=== PATIENT | female | born 1945 | race Hispanic/Latino ===

== ENCOUNTER 2020-06-01 10:09 | Inpatient (IN) | payer MEDICARE, BC, OTHER ==
[2020-06-01 10:30] LABS: %Basophils 0.8 % (0.0-1.0); %Eosinophils 0.2 % (0.0-10.0); %Monocytes 3.5 % (0.0-10.0); %Neutrophils 91.5 % (42.0-75.0); Hemoglobin 13.8 g/dL (12.0-16.0); Mean Corpuscular HGB CONC 33.6 g/dL (32.0-36.0); Mean Corpuscular Volume 92.2 fL (78.0-98.0); Mean Platelet Volume 7.4 fL (7.4-10.4); Platelet Count 235 thou/uL (130-400); RBC Distribution Width 12.4 % (11.5-14.5); Red Blood Cell (RBC) Count 4.45 mill/uL (4.20-5.40); White Blood Cell (WBC) Count 10.8 thou/uL (4.8-10.8)
[2020-06-01 10:31] LABS: #Basophils 0.1 thou/uL (0.0-0.2); #Lymphocytes 0.4 thou/uL (1.20-3.40); #Monocytes 0.4 thou/uL (0.11-0.59); #Neutrophils 9.9 thou/uL (1.40-6.50)
[2020-06-01 10:35] LABS: PTT 27.9 sec (22.9-36.1); Prothrombin Time 13.6 sec (12.0-14.7)
--- NOTE | 2020-06-01 10:39 | CT ---
CT head noncontrast HISTORY: Altered mental status. CVA. FINDINGS: Centered within the anterior aspect of the left basal ganglia is a large heterogeneous lobu lar predominantly hyperdense fluid collection that is 3.7 cm x 2.9 cm greatest diameters on the axial images. It is surrounded by vasogenic edema and results in complete effacement of the frontal h orn of the left lateral ventricle and 0.3 cm rightward shift of the septum pellucidum. Hyperdense hemorrhage extends into the lateral, third, and fourth ventricles, with slight distention of the right temporal horn. Prominent soft tissue swelling over the right supratemporal calvarium may be related to recent injury . No underlying skull fracture. Mucous retention cyst within the left maxillary sinus. No air-fluid levels. IMPRESSION : Large acute intra-axial left basal ganglia hematoma (likely hypertensive) with intraventricular exten arian and early hydrocephalus. Findings were called to Dr. Fox in the emergency department at 1024 hours Code CR.
[2020-06-01 11:01] LABS: Anion Gap 17 mmol/L (10-20); BUN (Urea Nitrogen) 13 mg/dL (9.8-20.1); Calc. Creatinine Clearance 0 mL/min (70-130); Calcium 8.7 mg/dL (7.8-10.44); Carbon Dioxide 21 mmol/L (23-31); Chloride 101 mmol/L (98-107); Estimated GFR-MDRD Greater than 90; Glucose 137 mg/dL (83-110); Potassium 3.3 mmol/L (3.5-5.1); Sodium 136 mmol/L (136-145)
[2020-06-01 11:02] LABS: ALT (SGPT) 149 U/L (8-55); AST (SGOT) 75 U/L (5-34); Albumin 4.1 g/dL (3.4-4.8); Alkaline Phosphatase 102 U/L (40-110); Bilirubin, Total 0.6 mg/dL (0.2-1.2); CK (CPK) 321 U/L (29-168); Globulin 2.8 g/dL (2.4-3.5); Protein, Total 6.9 g/dL (5.8-8.1)
[2020-06-01 11:07] LABS: Bilirubin Negative (Negative); Blood, Urine Negative (Negative); Clarity Clear (Clear); Glucose, Urine (Dipstick) 50 mg/dL (Negative); Ketone, Urine 10 mg/dL (Negative); Leukocyte Negative Leu/uL (Negative); Nitrite Negative (Negative); Protein, Urine (Dipstick) 20 mg/dL (Neg-Trace); Specific Gravity, Urine 1.014 (1.002-1.036); Urobilinogen Normal mg/dL (Less than 2)
[2020-06-01] MEDS ORDERED: Morphine 4 MG/ML VIAL ONE (12:29)
--- NOTE | 2020-06-01 12:32 | MRI ---
MRI BRAIN WITH AND WITHOUT CONTRAST: DATE: 06/01/2020 HISTORY: 75-year-old female with left intracranial intraparenchymal hematoma. Rule out underlying mass. COMPARISON: No prior brain MRIs. Noncontrast CT earlier today available. TECHNIQUE: Multiplanar, multisequence MRI of the brain performed pre- and post-IV injection of gadolinium based contrast agent. FINDINGS: There is a large intra-axial hematoma measuring approximately 4.7 x 4.2 x 4.0 cm centered at the left basal ganglia, and in golfing the entire left caudate head. The hematoma is mostly deoxyhemoglobin. There is a halo of multiple mild surrounding vasogenic edema. The hematoma extends i nto the left lateral ventricle. The left frontal horn is completely effaced due to extrinsic compression by the basal ganglia component of the hematoma. Hematoma extension into the body of the l eft lateral ventricle. There is also hematoma filling and at least partially obstructing the third ventricle, foramen of Monro bilaterally, occupying a portion of the right frontal horn, and with comp onents in the trigones and occipital horns of the lateral ventricles, left greater than right, and in the fourth ventricle, foramen of Magendie, and bilateral foramina of Luschka, right greater than l eft, as well as aqueduct of Sylvius. There is mild dilation of the right lateral ventricle and body of left lateral ventricle. It is uncertain how much of this represents mild partial obstructive hydro cephalus and how much of this is ex vacuo dilation due to atrophy, without prior studies for comparison. On the postcontrast images, there are numerous small patchy regions of enhancement within the basal g anglia portion of the hematoma. This enhancement could either represent active bleeding, or neoplasm, although the appearance is not typical for neoplasm. The left-sided basal ganglia and intraventricular portion of the hematoma causes mild focal left to r ight midline shift of the septum pellucidum a short distance of approximately 0.4 cm. Otherwise, no significant midline shift elsewhere. The basal cisterns are not effaced. No restricted diffusion outs carissa of hematomas. No dural venous sinus thrombosis. No definite enlarged feeding arteries or enlarged draining veins, to indicate AVM. No aneurysm larger than 3 mm identified. There is edema in the superficial soft tissues of the right lateral scalp, lateral to the right tempo ralis muscle. IMPRESSION: 1) large intra-axial hematoma centered in the left corpus striatum, involving most of left basal gang michael and left caudate nucleus. 2) extensive intraventricular extension of hemorrhage. 3) there is probably at least a low-grade partial obstructive hydrocephalus. 4) heterogeneous multifocal enhancement of the left basal ganglia hematoma. This could either represe nt active hemorrhaging or neoplasm. 5) possibilities include hypertensive hemorrhage versus neoplastic hemorrhage. 6) acute, traumatic right lateral scalp contusion, presumably from fall.
[2020-06-01] MEDS ORDERED: Ondansetron PF 4 MG/2 ML Vial ONE (12:34)
[2020-06-01 15:35] VITALS: BMI 30.9
[2020-06-01] MEDS ORDERED: Acetaminophen 650 MG Suppository PR PRN (15:41)
[2020-06-01] MEDS ORDERED: Acetaminophen 325 MG TAB PO PRN (15:41)
[2020-06-01] MEDS ORDERED: HYDROcodone/Acetaminophen 5/325 mg Tablet PO PRN (15:45)
[2020-06-01] MEDS ORDERED: Acetaminophen/Codeine 30-300mg Tablet PO PRN (15:49)
[2020-06-01] MEDS: Sodium Chloride 0.9% 1,000 ML IV SCH (16:17)
[2020-06-01] MEDS: Ketorolac Tromethamine 30 MG/ML VIAL IVP PRN ×2 (16:40→21:56)
[2020-06-01] MEDS: hydrALAZINE 20 MG/ML VIAL SLOW IVP PRN ×2 (16:41→20:05)
--- NOTE | 2020-06-01 17:48 | PDOC.HHP ---
Hospitalist HPI - History of Present Illness Right-sided weakness, a aphasia History of Present Illness: This patient is a 75-year-old female with a history of hypertension who presented to the emergency department with strokelike symptoms. These were manifested as right-sided weakness and expressive aphasia. CT scan of the head revealed a large acute intra-axial left basal ganglia hematoma likely hypertensive with intraventricular extension and early hydrocephalus. ER admitted the patient to the neurosurgical team and apparently there is no plan for acute surgical intervention at this time. Patient remains significantly encephalopathic with a aphasia and is unable to give any additional history. Patient has not been admitted to this institution before and there are no old records to draw upon. Hospitalist ROS - Review of Systems ROS unobtainable: due to mental status - Medication Medications: Active Medications Generic Name Dose Route Start Last Admin Trade Name Freq PRN Reason Stop Dose Admin Hydralazine HCl 10 mg 06/01/20 15:44 06/01/20 16:41 Apresoline SLOW IVP 10 mg Q15MIN PRN Administration SBP greater than 150 mmHg Sodium Chloride 1,000 mls @ 50 mls/hr 06/01/20 15:45 06/01/20 16:17 Normal Saline 0.9% IV 1,000 mls .Q20H LUCIA Administration Ketorolac Tromethamine 15 mg 06/01/20 15:49 06/01/20 16:40 Toradol IVP 15 mg Q6H PRN Administration pain Hospitalist History - Past Medical History Source: RN notes reviewed Cardiac: reports: HTN - Past Surgical History Past Surgical History: reports: Hysterectomy - Exam General Appearance: NAD General - other findings: Encephalopathic. She will turn to the sound of my voice, but no tracking Eye: PERRL Neck: supple, symmetric, no JVD, no thyromegaly, no lymphadenopathy, no carotid bruit Heart: RRR, no murmur, no gallops, no rubs, normal peripheral pulses Heart - other findings: Some ectopy Respiratory: CTAB, no wheezes, no rales, no ronchi, normal chest expansion, no tachypnea, normal percussion Gastrointestinal: soft, non-tender, non-distended, normal bowel sounds, no palpable masses, no hepatomegaly, no splenomegaly, no bruit Extremities: no cyanosis, no clubbing, no edema Skin: normal turgor, no lesions, no rashes Neurological - other findings: RLE weakness, RUE paralysis. Right facial droop. A phasic. Psychiatric - other findings: Encephalopathic. Hospitalist Results - Labs Result Diagrams: 06/01/20 10:14 06/01/20 10:14 Lab results: WBC 10.8 thou/uL (4.8-10.8) 06/01/20 10:14 Hgb 13.8 g/dL (12.0-16.0) 06/01/20 10:14 Hct 41.0 % (36.0-47.0) 06/01/20 10:14 MCV 92.2 fL (78.0-98.0) 06/01/20 10:14 Plt Count 235 thou/uL (130-400) 06/01/20 10:14 Neutrophils % 91.5 % (42.0-75.0) H 06/01/20 10:14 Sodium 136 mmol/L (136-145) 06/01/20 10:14 Potassium 3.3 mmol/L (3.5-5.1) L 06/01/20 10:14 Chloride 101 mmol/L (98-107) 06/01/20 10:14 Carbon Dioxide 21 mmol/L (23-31) L 06/01/20 10:14 BUN 13 mg/dL (9.8-20.1) 06/01/20 10:14 Creatinine 0.63 mg/dL (0.6-1.1) 06/01/20 10:14 Glucose 137 mg/dL (83-110) H 06/01/20 10:14 Calcium 8.7 mg/dL (7.8-10.44) 06/01/20 10:14 Total Bilirubin 0.6 mg/dL (0.2-1.2) 06/01/20 10:14 AST 75 U/L (5-34) H 06/01/20 10:14 ALT 149 U/L (8-55) H 06/01/20 10:14 Alkaline Phosphatase 102 U/L (40-110) 06/01/20 10:14 Creatine Kinase 321 U/L (29-168) H 06/01/20 10:14 Troponin I 0.020 ng/mL (< 0.028) 06/01/20 10:14 Serum Total Protein 6.9 g/dL (5.8-8.1) 06/01/20 10:14 Albumin 4.1 g/dL (3.4-4.8) 06/01/20 10:14 Urine Ketones 10 mg/dL (Negative) A 06/01/20 10:50 Urine Blood Negative (Negative) 06/01/20 10:50 Urine Nitrite Negative (Negative) 06/01/20 10:50 Ur Leukocyte Esterase Negative Meli/uL (Negative) 06/01/20 10:50 - EKG Interpretation EKG: Sinus rhythm with no ischemic changes. - Radiology Interpretation MRI - head Status: image reviewed by me, report reviewed by me (IMPRESSION: 1) large intra- axial hematoma centered in the left corpus striatum, involving most of left basal ganglia and left caudate nucleus. 2) extensive intraventricular extension of hemorrhage. 3) there is probably at least a low-grade partial obstructive hydrocephalus. 4) heterogeneous multifocal enhancement of the left basal ganglia hematoma. This could either represent active hemorrhaging or neoplasm. 5 ) possibilities include hypertensive hemorrhage versus neoplastic hemorrhage. 6 ) acute, traumatic right lateral scalp contusion, presumably from fall.) Hospitalist H&P A/P - Problem (1) Intracerebral hemorrhage Code(s): I61.9 - NONTRAUMATIC INTRACEREBRAL HEMORRHAGE, UNSPECIFIED Status: Acute (2) Right hemiplegia Code(s): G81.91 - HEMIPLEGIA, UNSPECIFIED AFFECTING RIGHT DOMINANT SIDE Status : Acute (3) Aphasia Code(s): R47.01 - APHASIA Status: Acute (4) Acute metabolic encephalopathy Code(s): G93.41 - METABOLIC ENCEPHALOPATHY Status: Acute (5) Hypertension Code(s): I10 - ESSENTIAL (PRIMARY) HYPERTENSION Status: Acute (6) Transaminitis Code(s): R74.0 - NONSPEC ELEV OF LEVELS OF TRANSAMNS & LACTIC ACID DEHYDRGNSE Status: Acute - Plan Plan: Intercerebral hemorrhage: This patient unfortunately has a very large bleed with communication of the ventricle and possible early hydrocephalus. She has right fco-plegia with some movement of the right lower extremity. She has right facial droop and encephalopathy with inability to speak. She is admitted to the neurosurgical team. Hospital medicine consulted for medical management. Currently her blood pressures are low to low normal. She has PRN medications available to manage her blood pressure should they become problematic. She is admitted to the ICU. Need to see how she responds with time. Transaminitis: Unclear etiology. We will repeat her levels in the morning. At some point she may need an ultrasound of the liver if her numbers continue to be high. Hypertension: Patient appears to take metoprolol ER 100 mg daily. Will monitor for rebound tachycardia.
--- NOTE | 2020-06-01 22:24 | HP ---
CHIEF COMPLAINT: Altered mental status, expressive aphasia, right sided weakness HISTORY OF PRESENT ILLNESS: Ms. Hennessy is a 75-year-old female who presented to the emergency department this morning after her family discovered her on the floor with altered mental status, speech deficits, and inability to move the right side of her body. History was limited secondary to patient being Moldovan- speaking and altered. CT of the brain completed upon ED arrival demonstrates a large left intraparenchymal hemorrhage involving the left basal ganglia with intraventricular expansion. There is casting of blood within the third ventricle. PAST MEDICAL HISTORY: Hypertension. SURGICAL HISTORY: Hysterectomy MEDICATIONS: Antihypertensive (unspecified). Remainder of history limited secondary to altered mental status and patient being Moldovan-speaking. REVIEW OF SYSTEMS: Limited secondary to the altered mental status and Moldovan speaking patient. PHYSICAL EXAMINATION: The patient is drowsy but awakes to verbal stimulus. No apparent respiratory or painful distress. GCS 13 (M6 V3 E4). Aphasic. Pupils are 3 mm, equal, round, and reactive to light. Right facial droop. Right side hemiparesis. 4/5 strength throughout left upper and lower extremity myotomes. Heart: RRR. Respiratory: CTAB, no wheezing, no rales, no rhonchi IMPRESSION AND DIAGNOSES: 1. Large left intraparenchymal hemorrhage with intraventricular extension 2. Altered mental status 3. Right sided hemiparesis 4. History of hypertension. PLAN: Case was discussed and imaging reviewed with Dr. [place]. Index CT of the brain demonstrated findings reported above in HPI. Our team ordered an MRI of the brain with and without contrast which demonstrates the left intraparenchymal hematoma with acute and subacute components. No obvious underlying lesion identified, however one may be present and obscured by hematoma. Ventricular size remains stable in comparison with index CT. A CTA of the head will be completed tomorrow morning. The patient has been admitted to the Critical Care Unit for close monitoring with hourly neurologic checks. Systolic blood pressure should be maintained less than 150 mmHg, and p.r.n. hydralazine has been ordered to help maintain blood pressure within these parameters. Head of bed 30 degrees. The patient will remain n.p.o. at this time. Please call for any neurologic changes or other concerns. This was a 50-minute initial visit, in which greater than 50% of the time was spent in review of records, review of imaging, evaluation, examination, and formulation of a plan. The remaining time was spent in counseling and coordination of care. Job ID: [id number] MTDD
[2020-06-02] MEDS: hydrALAZINE 20 MG/ML VIAL SLOW IVP PRN ×2 (00:35→17:02)
[2020-06-02 04:03] LABS: Anion Gap 17 mmol/L (10-20); BUN (Urea Nitrogen) 14 mg/dL (9.8-20.1); Calc. Creatinine Clearance 100 mL/min (70-130); Calcium 8.8 mg/dL (7.8-10.44); Carbon Dioxide 20 mmol/L (23-31); Chloride 101 mmol/L (98-107); Estimated GFR-MDRD 83; Glucose 127 mg/dL (83-110); Potassium 3.6 mmol/L (3.5-5.1); Sodium 134 mmol/L (136-145)
[2020-06-02 04:05] LABS: #Lymphocytes 0.8 thou/uL (1.20-3.40); #Neutrophils 11.8 thou/uL (1.40-6.50); %Basophils 0.1 % (0.0-1.0); %Eosinophils 0.2 % (0.0-10.0); %Lymphocytes 5.9 % (21.0-51.0); %Monocytes 7.2 % (0.0-10.0); %Neutrophils 86.7 % (42.0-75.0); Hemoglobin 14.6 g/dL (12.0-16.0); Mean Corpuscular HGB CONC 33.5 g/dL (32.0-36.0); Mean Corpuscular Hemoglobin 30.3 pg (27.0-31.0); Mean Corpuscular Volume 90.3 fL (78.0-98.0); Mean Platelet Volume 8.2 fL (7.4-10.4); Platelet Count 246 thou/uL (130-400); RBC Distribution Width 12.9 % (11.5-14.5); Red Blood Cell (RBC) Count 4.81 mill/uL (4.20-5.40); White Blood Cell (WBC) Count 13.7 thou/uL (4.8-10.8)
[2020-06-02] MEDS: Ketorolac Tromethamine 30 MG/ML VIAL IVP PRN ×3 (08:54→23:50)
[2020-06-02] MEDS: Famotidine/PF 20 mg/2ml Vial SLOW IVP SCH ×2 (08:55→20:08)
--- NOTE | 2020-06-02 09:00 | CON ---
DATE OF CONSULTATION: 06/02/2020 CONSULTING PHYSICIAN: Neurosurgical Service. REASON FOR CONSULTATION: ICU management. HISTORY OF PRESENT ILLNESS: This is a 75-year-old female who was brought in yesterday after being found on the floor with altered mental status. She has a large intraventricular bleed. She is hemiparetic on the right and is aphasic. PAST MEDICAL HISTORY: Hypertension. PAST SURGICAL HISTORY: Hysterectomy. MEDICATIONS: Prior to admission, not known. ALLERGIES: NONE. SOCIAL HISTORY: Not known whether she smokes or drinks. REVIEW OF SYSTEMS: Cannot be obtained. She is aphasic. PHYSICAL EXAMINATION: VITAL SIGNS: Heart rate 88, O2 saturation 95% on room air, respirations 23, and blood pressure 129/85. GENERAL: She moves in bed. She tries to pick out IVs with her left side. HEENT: Pupils reactive. Sclerae anicteric. Oropharynx clear. NECK: No adenopathy or JVD. LUNGS: Clear. CARDIAC: S1, S2. Regular. ABDOMEN: Soft. EXTREMITIES: No edema. NEUROLOGIC: She cannot move right side. LABORATORY DATA: White blood cell count 13.7, hematocrit 43.4, and platelet count 246. Sodium 134, potassium 3.6, chloride 101, CO2 of 20, BUN 14, creatinine 0.7, and glucose 127. Urinalysis shows small amount of ketones. CT of the head was reviewed. ASSESSMENT: Large brain bleed with copious intraventricular blood with perhaps some component of obstructive hydrocephalus per MRI. PLAN: 1. Supportive care deferred to Neurosurgery on management of CT findings; at some point, we will probably need to address nutritional status with either Dobhoff tube or PEG tube. 2. Hypertensive management with IV medications until she is able to take oral medications. 3. Covered for GI prophylaxis with Pepcid. Covered for DVT prophylaxis with SCDs. Job ID: [id number]
--- NOTE | 2020-06-02 09:32 | CT ---
PRELIMINARY REPORT/[facility]/EMERGENCY AFTER HOURS PROCEDURE: Receipt of this report by the clinical staff was confirmed with Ananth Pacheco RN by Cesar Elder on Jun 02, 2020 06:13:00 CDT. Addendum electronically signed by Cesar Elder on June 02, 2020 6:13:15 AM CDT EXAMINATION CTA Head With Intravenous Contrast. CT Head with/without Contrast. HISTORY Left IPH, assess for vascular abnormalities TECHNIQUE Axial CTA images of the head with intravenous contrast. Three-dimensional MIP/volume rendered reforma tions were performed. Axial computed tomography images of the head/brain performed with/without intravenous contrast. CONTRAST With and without; ISOVUE 370,100mL COMPARISON None provided. FINDINGS: CT HEAD: BRAIN/VENTRICLES: Intraparenchymal hemorrhage is appreciated within the left frontal lobe, measuring 3.7 x 3.2 x 3.4 cm . Surrounding vasogenic edema is present. The intraparenchymal hemorrhage extends into the ventricu lar system to involve almost the entirety of the left lateral, third, and fourth ventricles. A small amount of hemorrhage is appreciated within the right lateral ventricle as well as within the cerebra l aqueduct. No definitive mass lesion. No CT evidence for acute territorial infarct. Minimal left to right midline shift is present. The lateral and third ventricles are prominent. ORBITS: The orbits are unremarkable. SINUSES AND MASTOIDS: A mucus retention cyst is seen within the left maxillary sinus. The mastoid air cells are clear. CTA HEAD: INTERNAL CAROTID ARTERIES The intracranial ICAs are patent with no significant stenosis. No occlusion. No aneurysm. ANTERIOR CEREBRAL ARTERIES No significant stenosis. No occlusion. No aneurysm. MIDDLE CEREBRAL ARTERIES The left mid to distal M1 segment is diminutive in appearance. Contrast is seen extending through th e left M2, M3, and M4 segments. The right MCA is unremarkable. No aneurysm. POSTERIOR CEREBRAL ARTERIES No significant stenosis. No occlusion. No aneurysm. BASILAR ARTERY No significant stenosis. No occlusion. No aneurysm. VERTEBRAL ARTERIES No significant stenosis. No occlusion. No aneurysm. OTHER: SOFT TISSUES: No acute finding. No masses or lymphadenopathy. BONES: No acute osseous abnormality. IMPRESSION: 1. Intraparenchymal hemorrhage centered within the left frontal lobe with intraventricular extension as described above. Minimal left to right midline shift is present. Additionally, there is promine nce of the lateral and third ventricles suggestive of early obstructive hydrocephalus. 2. Diminutive appearance of the left mid to distal M1 segment is likely secondary to vasospasm that is adjacent to the aforementioned intraparenchymal hemorrhage. Stenosis is another differential cons ideration. ELECTRONICALLY SIGNED BY: Wayne Irizarry MD Jun 02, 2020 6:04:58 AM CDT This report is intended for review by the ordering physician only, in accordance of law. If you recei ve this report in error, please call [facility] at [phone]. FINAL REPORT CTA HEAD WITH AND WITHOUT CONTRAST: Date: 06/02/2020 Axial tomograms obtained through the head without IV enhancement. This is followed by axial tomograms following angio protocol with multiplanar reconstruction and 3D postprocessing. INDICATION: Intraparenchymal hemorrhage. Assess for vascular abnormalities. FINDINGS/IMPRESSION: Intraparenchymal hematoma involving the left frontal lobe and basal ganglia with intraventricular ext ension and prominence of the ventricles noted as seen on the preliminary report. CTA shows luminal narrowing mid to distal left M1 segment, which is described on the preliminary repo rt. I am in agreement with the preliminary report issued by [facility]. POS: [place]
[2020-06-02] MEDS: Sodium Chloride 0.9% 1,000 ML IV SCH ×2 (10:21→11:42)
--- NOTE | 2020-06-02 13:01 | PDOC.HOSPP ---
- Subjective Encounter Date: 06/02/20 non-verbal - Objective Vital Signs & Weight: Vital Signs (12 hours) Temp Pulse Ox 06/02/20 11:00 99.1 F 06/02/20 07:45 96 06/02/20 07:00 99.0 F 06/02/20 03:55 98.2 F Weight Weight 191 lb 5.78 oz Most Recent Monitor Data Heart Rate from ECG 108 NIBP 161/88 NIBP BP-Mean 112 Respiration from ECG 33 SpO2 98 I&O: 06/01/20 06/02/20 06/03/20 06:59 06:59 06:59 Intake Total 686 Output Total 525 395 Balance 161 -395 Result Diagrams: 06/02/20 03:07 06/02/20 03:07 Hospitalist ROS - Medication Medications: Active Medications Generic Name Dose Route Start Last Admin Trade Name Freq PRN Reason Stop Dose Admin Famotidine 20 mg 06/02/20 09:00 06/02/20 08:55 Pepcid SLOW IVP 20 mg BID LUCIA Administration Hydralazine HCl 10 mg 06/01/20 15:44 06/02/20 00:35 Apresoline SLOW IVP 10 mg Q15MIN PRN Administration SBP greater than 150 mmHg Sodium Chloride 1,000 mls @ 50 mls/hr 06/01/20 15:45 06/02/20 11:42 Normal Saline 0.9% IV Not Given .Q20H LUCIA Ketorolac Tromethamine 15 mg 06/01/20 15:49 06/02/20 08:54 Toradol IVP 15 mg Q6H PRN Administration pain - Exam General Appearance: NAD Eye: PERRL Heart: RRR, no murmur, no gallops, no rubs, normal peripheral pulses Respiratory: CTAB, no wheezes, no rales, no ronchi, normal chest expansion, no tachypnea, normal percussion Gastrointestinal: soft, non-distended, normal bowel sounds, no palpable masses, no hepatomegaly, no splenomegaly Extremities: no cyanosis, no clubbing, no edema Skin: normal turgor Musculoskeletal: generalized weakness Psychiatric: lethargic Psychiatric - other findings: Encephalopathic Hosp A/P (1) Intracerebral hemorrhage Code(s): I61.9 - NONTRAUMATIC INTRACEREBRAL HEMORRHAGE, UNSPECIFIED Status: Acute (2) Right hemiplegia Code(s): G81.91 - HEMIPLEGIA, UNSPECIFIED AFFECTING RIGHT DOMINANT SIDE Status : Acute (3) Aphasia Code(s): R47.01 - APHASIA Status: Acute (4) Acute metabolic encephalopathy Code(s): G93.41 - METABOLIC ENCEPHALOPATHY Status: Acute (5) Hypertension Code(s): I10 - ESSENTIAL (PRIMARY) HYPERTENSION Status: Acute (6) Transaminitis Code(s): R74.0 - NONSPEC ELEV OF LEVELS OF TRANSAMNS & LACTIC ACID DEHYDRGNSE Status: Acute - Plan ICH: Large left anterior intraparenchymal bleed with communication to the ventricle and possible mild obstructive hydrocephalus. Admitted to neurosurgery. At this point it does not appear there is any intervention indicated or planned. Not optimistic for substantial recovery. Patient will likely need enteral feeding at some point. Agree with pulmonology she will likely need a Dobbhoff for PEG tube. Maintaining aggressive blood pressure control although it has not been a significant problem. Hypertension: Patient's blood pressure has actually been on the lower side. She is not taking p.o.'s and has PRN IV medications available. Transaminitis: Added to liver function panel. Continue DVT and PUD prophylaxis.
--- NOTE | 2020-06-02 13:18 | PRG ---
DATE OF SERVICE: 06/02/2020 Ms. Hennessy is a 75-year-old woman, who was admitted for a large left substantia innominata parenchymal hemorrhage involving the caudate and also extension into the left ventricular system with casting of the third ventricle. She has mild obstructive hydrocephalus in the right ventricle. She is drowsy, but follows commands in the left upper and left lower. She is Lao-speaking only. She withdraws in the right upper and right lower. We will continue to watch her closely. I should note on CT angiogram, I see nothing for vascular abnormality. She does have focal areas of contrast enhancement. There could be an underlying neoplasm here. I do not suspect hypertensive hemorrhage. She has been mildly hypertensive with 140 to 160 systolic, but nothing over 200. Long-term followup will be a repeat MRI of the brain without and with contrast in 6 weeks. At this time, we will watch her closely in the ICU for placement of an external ventricular drain for hydrocephalus. Job ID: [id number]
[2020-06-02 14:14] LABS: SARS-CoV-2 MS2 Positive; SARS-CoV-2 N Gene Negative; SARS-CoV-2 S Gene Negative; SARS-CoV-2 by NAA Not Detected (NotDetected); SARS-CoV-2 orf1ab Negative
[2020-06-02] MEDS ORDERED: Iopamidol-370 76% 500 ML 1 ML ONE (14:32)
[2020-06-02 14:39] LABS: ALT (SGPT) 101 U/L (8-55); AST (SGOT) 44 U/L (5-34); Alkaline Phosphatase 94 U/L (40-110); Bilirubin, Direct 0.4 mg/dL (0.1-0.3); Bilirubin, Total 0.8 mg/dL (0.2-1.2)
[2020-06-02] MEDS ORDERED: Amiodarone 150 MG, Admixture Fee 1 EACH in Dextrose 5% in Water 100 ML IVPB SCH (17:30)
[2020-06-02] MEDS: Amiodarone 450 MG, Admixture Fee 1 EACH in Dextrose 5% in Water 250 ML IVPB SCH ×2 (17:31→23:51)
[2020-06-02] MEDS ORDERED: Digoxin 0.5 MG/2 ML AMP SLOW IVP SCH (20:45)
[2020-06-03] MEDS: Sodium Chloride 0.9% 1,000 ML IV SCH (06:36)
--- NOTE | 2020-06-03 09:05 | CT ---
PRELIMINARY REPORT/[facility]/AFTER HOURS PROCEDURE EXAM: CT Head Without Intravenous Contrast. CLINICAL HISTORY: F/U TECHNIQUE: Axial computed tomography images of the head/brain without intravenous contrast. COMPARISON: CT - CTA ANGIO HEAD W WO CON - 06/02/2020 05:[address] - CT BRAIN WO CON - 06/01/2020 10:14 AM CDT FINDINGS: BRAIN: Large hemorrhage in the inferior left frontal lobe with extension into the left lateral ventricle is unchanged in appearance compared to prior. Hypodensity of the white matter is nonspecific but likely represents chronic microvascular ischemic d isease. Unchanged minimal left to right midline shift is present. VENTRICLES: Again seen is hemorrhage layering within the typical horn of the right lateral ventricle and within t he third and fourth fourth ventricles. Prominence of the lateral ventricles, unchanged in morphology compared to prior ORBITS: The orbits are unremarkable. SINUSES AND MASTOIDS: Polyp versus retention cyst within the left maxillary sinus. SOFT TISSUES: No significant facial or scalp soft tissue swelling evident. No radiopaque foreign body is seen. BONES: No acute skull fracture. IMPRESSION: Large left inferior frontal lobe parenchymal hemorrhage with extension into the left lateral ventricl e. Small right intraventricular hemorrhage as well as hemorrhage within the third and fourth ventric les. Prominence of the ventricles, unchanged in appearance compared to prior. No significant change compared to the prior study. ELECTRONICALLY SIGNED BY: Cyndi Loza MD Jun 03, 2020 4:23:57 AM CDT This report is intended for review by the ordering physician only, in accordance of law. If you recei ve this report in error, please call [facility] at [phone]. FINAL REPORT CT HEAD: 06/03/20 4:08 a.m. INDICATIONS: Follow up intraparenchymal hemorrhage. COMPARISON: 06/01/2020 FINDINGS: Large intraparenchymal hematoma on the left with intraventricular extension again noted. No significa nt interval change. I am in agreement with the preliminary report. POS: [place]
[2020-06-03] MEDS ORDERED: Metoprolol Tartrate 5 MG/5 ML VIAL IVP SCH (09:15)
[2020-06-03] MEDS: Metoprolol Tartrate 5 MG/5 ML VIAL IVP SCH ×3 (10:07→21:14)
[2020-06-03] MEDS: Famotidine/PF 20 mg/2ml Vial SLOW IVP SCH ×2 (10:08→21:14)
--- NOTE | 2020-06-03 10:17 | CON ---
DATE OF CONSULTATION: 06/03/2020 REASON FOR CONSULTATION: Atrial fibrillation with a rapid ventricular response. HISTORY OF PRESENT ILLNESS: Ms. Hennessy is a 75-year-old woman, admitted to the hospital on 06/01/2020, with stroke-like symptoms and was found to have intracerebral bleed. Yesterday, she developed atrial fibrillation with a rapid ventricular response and was started on amiodarone. The patient is aphasic, unable to give any history. PAST MEDICAL HISTORY: 1. History of hypertension. 2. No known history of heart disease. PAST SURGICAL HISTORY: Hysterectomy. MEDICATIONS: Unknown prior to admission. She is now on intravenous amiodarone. SOCIAL HISTORY: Unknown. REVIEW OF SYSTEMS: Not obtainable. Aphasic. PHYSICAL EXAMINATION: GENERAL: This is a 75-year-old woman, who is resting comfortably. She does have a hemiparesis on the right side and is aphasic. VITAL SIGNS: Blood pressure is elevated at 150/100. Pulse is anywhere between 110 and 140, atrial fibrillation. LUNGS: Clear. CARDIAC: Irregularly irregular. ABDOMEN: Soft and nontender. EXTREMITIES: Warm and dry. No clubbing. No cyanosis. There is no edema. DIAGNOSTIC STUDIES: EKG reveals atrial fibrillation with a rapid ventricular response. ASSESSMENT: 1. Atrial fibrillation with a rapid ventricular response. The rates have improved on amiodarone, but are still elevated. 2. Hypertension. 3. Intracerebral hematoma bleeding. PLAN: 1. Add intravenous beta myrtle. 2. Continue amiodarone. 3. If blood pressure remains elevated, consideration for intravenous ESE inhibitor, she is currently not able to take oral medicines. Job ID: [id number]
--- NOTE | 2020-06-03 10:22 | PRG ---
DATE OF SERVICE: 06/03/2020 SUBJECTIVE: The patient looks the same. She did go into atrial fibrillation yesterday and was started on amiodarone drip, but remains in atrial fibrillation. PHYSICAL EXAMINATION: VITAL SIGNS: Temperature 98.5, pulse 136, blood pressure 104/71, and O2 saturation 99%. HEENT: Unremarkable. NECK: No JVD. CHEST: Clear. CARDIAC: S1 and S2, irregularly irregular. ABDOMEN: Soft. EXTREMITIES: No edema. LABORATORY DATA: Labs were not performed today. Brain CT looks about the same in terms of hemorrhage. ASSESSMENT: 1. Extensive left-sided brain hemorrhage. 2. Right-sided hemiparesis. 3. Oropharyngeal dysfunction. 4. Atrial fibrillation with rapid ventricular response. PLAN: 1. Dobhoff tube and initiate tube feeds. 2. Recheck labs tomorrow. 3. Atrial fibrillation management per Cardiology. Job ID: [id number]
--- NOTE | 2020-06-03 15:43 | RAD ---
SUPINE ABDOMEN: History: Abscess Dobbhoff tube placement. FINDINGS: Dobbhoff tube has been placed. The tube passes through the EG junction and appears to pass through th e pylorus and overlies the midabdomen, probably in the region of the second or third portion of the d uodenum. Bowel gas pattern is unremarkable. IMPRESSION: As above. POS: AGW
--- NOTE | 2020-06-03 16:48 | PDOC.HOSPP ---
- Subjective Encounter Date: 06/03/20 non-verbal - Objective Vital Signs & Weight: Vital Signs (12 hours) Temp 06/03/20 15:00 97.9 F 06/03/20 07:00 98.5 F Weight Weight 191 lb 5.78 oz Most Recent Monitor Data Heart Rate from ECG 118 NIBP 149/88 NIBP BP-Mean 108 Respiration from ECG 21 SpO2 98 I&O: 06/02/20 06/03/20 06/04/20 06:59 06:59 06:59 Intake Total 686 1542 Output Total 525 890 530 Balance 161 652 -530 Result Diagrams: 06/02/20 03:07 06/02/20 03:07 Hospitalist ROS - Medication Medications: Active Medications Generic Name Dose Route Start Last Admin Trade Name Freq PRN Reason Stop Dose Admin Famotidine 20 mg 06/02/20 09:00 06/03/20 10:08 Pepcid SLOW IVP 20 mg BID LUCIA Administration Hydralazine HCl 10 mg 06/01/20 15:44 06/02/20 17:02 Apresoline SLOW IVP 10 mg Q15MIN PRN Administration SBP greater than 150 mmHg Sodium Chloride 1,000 mls @ 50 mls/hr 06/01/20 15:45 06/03/20 06:36 Normal Saline 0.9% IV 1,000 mls .Q20H LUCIA Administration Amiodarone HCl 450 mg/ 259 mls @ 0 mls/hr 06/02/20 17:30 06/02/20 23:51 Miscellaneous Medication 1 IVPB 259 mls each/ Dextrose/Water INF LUCIA Administration Protocol As Directed Metoprolol Tartrate 5 mg 06/03/20 10:00 06/03/20 10:07 Lopressor IVP Not Given Q6H LUCIA - Exam General Appearance: NAD General - other findings: She is awake. Heart: no murmur, irregular Heart - other findings: Tachycardic Respiratory: CTAB, no wheezes, no rales, no ronchi, normal chest expansion, no tachypnea, normal percussion Gastrointestinal: soft, non-tender, non-distended, normal bowel sounds, no palpable masses, no hepatomegaly, no splenomegaly, no bruit Extremities: no cyanosis, no clubbing, no edema Skin: normal turgor Neurological - other findings: Right hemiplegia, incomplete. Aphasic Psychiatric - other findings: Encephalopathic. Will follow some simple commands on the left. Hosp A/P (1) Intracerebral hemorrhage Code(s): I61.9 - NONTRAUMATIC INTRACEREBRAL HEMORRHAGE, UNSPECIFIED Status: Acute (2) Right hemiplegia Code(s): G81.91 - HEMIPLEGIA, UNSPECIFIED AFFECTING RIGHT DOMINANT SIDE Status : Acute (3) Aphasia Code(s): R47.01 - APHASIA Status: Acute (4) Acute metabolic encephalopathy Code(s): G93.41 - METABOLIC ENCEPHALOPATHY Status: Acute (5) Hypertension Code(s): I10 - ESSENTIAL (PRIMARY) HYPERTENSION Status: Acute (6) Transaminitis Code(s): R74.0 - NONSPEC ELEV OF LEVELS OF TRANSAMNS & LACTIC ACID DEHYDRGNSE Status: Acute - Plan ICH: Large left anterior intraparenchymal bleed with communication to the ventricle and possible mild obstructive hydrocephalus. Admitted to neurosurgery. At this point it does not appear there is any intervention indicated or planned. Repeat scan did not show significant change. She is showing some slight improvement. Dobbhoff placed today for enteral feeds. Hypertension: Blood pressure has come up significantly. Continue with PRN's. Cardiology recommending possible addition of ESE inhibitor should her pressure continue to run high. Transaminitis: Trending downward. Atrial fibrillation with rapid ventricular response: Patient had abrupt onset of A. fib with RVR yesterday afternoon. Discussed with cardiology was started the amiodarone drip. Rate is somewhat better but still tachycardic cardiology following and adding IV beta-blockers. Continue DVT and PUD prophylaxis. Disposition: She will likely benefit from some rehab when stable.
[2020-06-03] MEDS ORDERED: Labetalol HCl 100 MG/20 ML VIAL SLOW IVP SCH (22:30)
[2020-06-04] MEDS: Metoprolol Tartrate 5 MG/5 ML VIAL IVP SCH ×5 (03:04→23:16)
[2020-06-04 04:44] LABS: #Eosinphils 0.1 thou/uL (0.0-0.7); #Monocytes 0.8 thou/uL (0.11-0.59); #Neutrophils 8.2 thou/uL (1.40-6.50); %Basophils 0.2 % (0.0-1.0); %Eosinophils 0.7 % (0.0-10.0); %Lymphocytes 9.9 % (21.0-51.0); %Neutrophils 81.2 % (42.0-75.0); Hemoglobin 14.1 g/dL (12.0-16.0); Mean Corpuscular HGB CONC 33.5 g/dL (32.0-36.0); Mean Corpuscular Hemoglobin 30.9 pg (27.0-31.0); Mean Corpuscular Volume 92.2 fL (78.0-98.0); Mean Platelet Volume 7.5 fL (7.4-10.4); Platelet Count 266 thou/uL (130-400); RBC Distribution Width 12.9 % (11.5-14.5); Red Blood Cell (RBC) Count 4.57 mill/uL (4.20-5.40); White Blood Cell (WBC) Count 10.1 thou/uL (4.8-10.8)
[2020-06-04 05:04] LABS: Anion Gap 13 mmol/L (10-20); BUN (Urea Nitrogen) 12 mg/dL (9.8-20.1); Calc. Creatinine Clearance 116 mL/min (70-130); Calcium 8.2 mg/dL (7.8-10.44); Carbon Dioxide 21 mmol/L (23-31); Chloride 106 mmol/L (98-107); Estimated GFR-MDRD Greater than 90; Glucose 137 mg/dL (83-110); Potassium 3.4 mmol/L (3.5-5.1); Sodium 137 mmol/L (136-145)
[2020-06-04] MEDS: Sodium Chloride 0.9% 1,000 ML IV SCH (06:15)
[2020-06-04] MEDS: Famotidine/PF 20 mg/2ml Vial SLOW IVP SCH ×2 (09:14→21:48)
[2020-06-04] MEDS: Amiodarone 450 MG, Admixture Fee 1 EACH in Dextrose 5% in Water 250 ML IVPB SCH (10:43)
[2020-06-04] MEDS ORDERED: Enalaprilat Dihydrate 1.25 MG/ML VIAL SLOW IVP SCH (12:00)
--- NOTE | 2020-06-04 13:58 | PDOC.HOSPP ---
- Subjective Encounter Date: 06/04/20 non-verbal - Objective Vital Signs & Weight: Vital Signs (12 hours) Temp Pulse Pulse Pulse Resp BP BP 06/04/20 11:20 98.1 F 106 H 16 06/04/20 10:18 117 H 126 H 166/91 H 168/111 H 06/04/20 10:17 117 H 125 H 166/91 H 168/111 H 06/04/20 08:00 98.1 F 112 H 20 06/04/20 03:20 103 H 06/04/20 02:35 BP Pulse Ox 06/04/20 11:20 133/78 97 06/04/20 10:18 06/04/20 10:17 06/04/20 08:00 159/98 H 97 06/04/20 03:20 148/99 H 06/04/20 02:35 170/115 H Weight Admit Weight 191 lb 5.776 oz Weight 191 lb 5.776 oz Most Recent Monitor Data Heart Rate from ECG 101 NIBP 141/99 NIBP BP-Mean 113 Respiration from ECG 26 SpO2 98 I&O: 06/03/20 06/04/20 06/05/20 06:59 06:59 06:59 Intake Total 1542 954.1 Output Total 890 1435 Balance 652 -480.9 Result Diagrams: 06/04/20 04:31 06/04/20 04:31 Hospitalist ROS - Medication Medications: Active Medications Generic Name Dose Route Start Last Admin Trade Name Freq PRN Reason Stop Dose Admin Famotidine 20 mg 06/02/20 09:00 06/04/20 09:14 Pepcid SLOW IVP 20 mg BID LUCIA Administration Hydralazine HCl 10 mg 06/01/20 15:44 06/02/20 17:02 Apresoline SLOW IVP 10 mg Q15MIN PRN Administration SBP greater than 150 mmHg Sodium Chloride 1,000 mls @ 50 mls/hr 06/01/20 15:45 06/04/20 06:15 Normal Saline 0.9% IV 1,000 mls .Q20H LUCIA Administration Amiodarone HCl 450 mg/ 259 mls @ 0 mls/hr 06/02/20 17:30 06/04/20 10:43 Miscellaneous Medication 1 IVPB 259 mls each/ Dextrose/Water INF LUCIA Administration Protocol As Directed Metoprolol Tartrate 5 mg 06/03/20 10:00 06/04/20 09:13 Lopressor IVP 5 mg Q6H LUCIA Administration Sodium Chloride 10 ml 06/01/20 15:45 06/04/20 09:15 Flush - Normal Saline IVF 10 ml PRN PRN Administration Saline Flush - Exam General Appearance: NAD General - other findings: Awake but somnolent. Heart: no murmur, irregular Respiratory: CTAB, no wheezes, no rales, no ronchi, normal chest expansion, no tachypnea, normal percussion Gastrointestinal: soft, non-tender, non-distended, normal bowel sounds, no palpable masses, no hepatomegaly, no splenomegaly, no bruit Extremities: no cyanosis, no clubbing, no edema Skin: normal turgor Neurological - other findings: Right hemiplegia. aphasia. Encephalopathic Musculoskeletal: generalized weakness Psychiatric - other findings: Encephalopathic Hosp A/P (1) Intracerebral hemorrhage Code(s): I61.9 - NONTRAUMATIC INTRACEREBRAL HEMORRHAGE, UNSPECIFIED Status: Acute (2) Right hemiplegia Code(s): G81.91 - HEMIPLEGIA, UNSPECIFIED AFFECTING RIGHT DOMINANT SIDE Status : Acute (3) Aphasia Code(s): R47.01 - APHASIA Status: Acute (4) Acute metabolic encephalopathy Code(s): G93.41 - METABOLIC ENCEPHALOPATHY Status: Acute (5) Hypertension Code(s): I10 - ESSENTIAL (PRIMARY) HYPERTENSION Status: Chronic (6) Transaminitis Code(s): R74.0 - NONSPEC ELEV OF LEVELS OF TRANSAMNS & LACTIC ACID DEHYDRGNSE Status: Acute (7) Atrial fibrillation with rapid ventricular response Code(s): I48.91 - UNSPECIFIED ATRIAL FIBRILLATION Status: Acute - Plan ICH: Large left anterior intraparenchymal bleed with communication to the ventricle and possible mild obstructive hydrocephalus. Admitted to neurosurgery. At this point it does not appear there is any intervention indicated or planned. Repeat scan did not show significant change. She initially showed some improvement but today she appears to be stable or very slightly regressed. She is not following commands today. She did manage to pull out her Dobbhoff tube. Will replace that today and resume feeds. Appreciate dietitians recommendations. I did speak with her son Barrett. They certainly do want to pursue PEG tube if that becomes necessary. We will likely give her another day or 2 to see if her encephalopathy will clear enough to assess her swallow. Today the patient was unable to work with speech therapy at all due to the encephalopathy. Hypertension: Blood pressure has come up significantly. Continue with PRN's. Cardiology initiated IV ESE inhibitor. Transaminitis: Trending downward. Recheck in a.m. Atrial fibrillation with rapid ventricular response: Patient had abrupt onset of A. fib with RVR. She was started on amiodarone. Today she is converted back to sinus rhythm. Continue DVT prophylaxis with SCDs. Anticoagulation contraindicated. PUD prophylaxis with famotidine. Disposition: She will likely benefit from some rehab when stable.
--- NOTE | 2020-06-04 14:08 | PRG ---
DATE OF SERVICE: 06/03/2020 Ms. Hennessy is looking better. She is more alert. She remains severely hemiparetic in the right side, but does move spontaneously on the left. She is aphasic. Her head CT is stable with no change in her mild ventriculomegaly. Given the improvement in her level of alertness I would be fine to transfer her to the floor, preferably the stroke floor and I have spoken with Dr. Arenas and we have contacted her daughter to speak with her as well. We will plan for repeat MRI of the brain without and with contrast in 6 weeks to assess for underlying neoplasm. Job ID: [id number]
[2020-06-04] MEDS: Enalaprilat Dihydrate 1.25 MG/ML VIAL SLOW IVP SCH ×2 (14:21→21:48)
--- NOTE | 2020-06-04 16:56 | RAD ---
ABDOMEN ONE VIEW: HISTORY: Check placement of Dobbhoff tube FINDINGS: The tip of the feeding tube is in the distal stomach. The bowel gas pattern is unremarkable.
--- NOTE | 2020-06-04 18:26 | PRG ---
DATE OF SERVICE: 06/04/2020 SUBJECTIVE: Ms. Hennessy is resting comfortably. Her son is in the room, answers questions. OBJECTIVE: VITAL SIGNS: Her heart rate is now normal, it is regular in the 80s, earlier she was in atrial fibrillation. LUNGS: Clear, now it sounds regular. ABDOMEN: Soft and nontender. EXTREMITIES: There is no edema. ASSESSMENT: 1. Paroxysmal atrial fibrillation, appears to be in sinus rhythm now. 2. Hypertension. PLAN: We will need some type of access to give her oral medicines. In the meantime, we will start intravenous Vasotec in addition to the amiodarone. Job ID: [id number]
[2020-06-05] MEDS: Amiodarone 450 MG, Admixture Fee 1 EACH in Dextrose 5% in Water 250 ML IVPB SCH ×2 (02:10→11:30)
[2020-06-05] MEDS: Sodium Chloride 0.9% 1,000 ML IV SCH (02:50)
[2020-06-05 05:00] LABS: #Eosinphils 0.1 thou/uL (0.0-0.7); #Lymphocytes 1.2 thou/uL (1.20-3.40); #Monocytes 1.2 thou/uL (0.11-0.59); #Neutrophils 7.8 thou/uL (1.40-6.50); %Basophils 0.2 % (0.0-1.0); %Eosinophils 0.5 % (0.0-10.0); %Lymphocytes 11.9 % (21.0-51.0); %Monocytes 11.5 % (0.0-10.0); %Neutrophils 75.9 % (42.0-75.0); Hemoglobin 14.1 g/dL (12.0-16.0); Mean Corpuscular Hemoglobin 30.8 pg (27.0-31.0); Mean Corpuscular Volume 93.3 fL (78.0-98.0); Mean Platelet Volume 7.5 fL (7.4-10.4); Platelet Count 264 thou/uL (130-400); RBC Distribution Width 12.7 % (11.5-14.5); Red Blood Cell (RBC) Count 4.59 mill/uL (4.20-5.40); White Blood Cell (WBC) Count 10.3 thou/uL (4.8-10.8)
[2020-06-05 05:34] LABS: Anion Gap 12 mmol/L (10-20); BUN (Urea Nitrogen) 23 mg/dL (9.8-20.1); Calc. Creatinine Clearance 106 mL/min (70-130); Calcium 8.3 mg/dL (7.8-10.44); Carbon Dioxide 21 mmol/L (23-31); Chloride 107 mmol/L (98-107); Estimated GFR-MDRD 89; Glucose 136 mg/dL (83-110); Potassium 3.2 mmol/L (3.5-5.1); Sodium 137 mmol/L (136-145)
[2020-06-05] MEDS: Enalaprilat Dihydrate 1.25 MG/ML VIAL SLOW IVP SCH ×3 (06:25→21:22)
[2020-06-05] MEDS: Metoprolol Tartrate 5 MG/5 ML VIAL IVP SCH ×3 (06:25→17:58)
[2020-06-05] MEDS: Famotidine/PF 20 mg/2ml Vial SLOW IVP SCH ×2 (09:26→21:22)
[2020-06-05] MEDS: hydrALAZINE 20 MG/ML VIAL SLOW IVP PRN ×2 (09:47→16:59)
--- NOTE | 2020-06-05 14:19 | PDOC.HOSPP ---
- Subjective Encounter Date: 06/05/20 Subjective: About the same. Son, Barrett, is in the room today. He has noted that she is not following commands. Not communicating with him. - Objective Vital Signs & Weight: Vital Signs (12 hours) Temp Pulse Resp BP BP Pulse Ox 06/05/20 11:46 98.9 F 78 20 164/86 H 95 06/05/20 09:47 70 06/05/20 08:10 92 L 06/05/20 07:54 98.0 F 70 18 151/77 H 92 L 06/05/20 06:25 151/66 H 06/05/20 03:56 99.1 F 64 18 98/58 L 94 L Weight Admit Weight 191 lb 5.776 oz Weight 191 lb 5.776 oz Most Recent Monitor Data Heart Rate from ECG 101 NIBP 141/99 NIBP BP-Mean 113 Respiration from ECG 26 SpO2 98 I&O: 06/04/20 06/05/20 06/06/20 06:59 06:59 06:59 Intake Total 954.1 1801 Output Total 1435 100 Balance -480.9 1701 Result Diagrams: 06/05/20 04:44 06/05/20 04:44 Additional Labs: Accuchecks 06/05/20 06/05/20 06/04/20 10:50 05:48 20:38 POC Glucose 166 H 132 H 125 H 06/04/20 17:00 POC Glucose 127 H Hospitalist ROS - Medication Medications: Active Medications Generic Name Dose Route Start Last Admin Trade Name Freq PRN Reason Stop Dose Admin Acetaminophen 650 mg 06/01/20 15:41 06/04/20 23:16 Tylenol [place] 650 mg Q6H PRN Administration Headache/Fever or Pain (1-3) Enalaprilat 1.25 mg 06/04/20 14:00 06/05/20 06:25 Vasotec SLOW IVP 1.25 mg Q8HR LUCIA Administration Famotidine 20 mg 06/02/20 09:00 06/05/20 09:26 Pepcid SLOW IVP 20 mg BID LUCIA Administration Hydralazine HCl 10 mg 06/01/20 15:44 06/05/20 09:47 Apresoline SLOW IVP 10 mg Q15MIN PRN Administration SBP greater than 150 mmHg Sodium Chloride 1,000 mls @ 50 mls/hr 06/01/20 15:45 06/05/20 02:50 Normal Saline 0.9% IV 1,000 mls .Q20H LUCIA Administration Amiodarone HCl 450 mg/ 259 mls @ 0 mls/hr 06/02/20 17:30 06/05/20 11:30 Miscellaneous Medication 1 IVPB 259 mls each/ Dextrose/Water INF LUCIA Administration Protocol As Directed Metoprolol Tartrate 5 mg 06/04/20 18:00 06/05/20 11:34 Lopressor IVP 5 mg Q6H LUCIA Administration Sodium Chloride 10 ml 06/01/20 15:45 06/04/20 09:15 Flush - Normal Saline IVF 10 ml PRN PRN Administration Saline Flush - Exam General Appearance: NAD General - other findings: Occ brief eye contact. Heart: RRR, no murmur, no gallops, no rubs, normal peripheral pulses Respiratory: CTAB, no wheezes, no rales, no ronchi, normal chest expansion, no tachypnea, normal percussion Respiratory - other findings: Mildly tachypneic at times. Gastrointestinal: soft, non-tender, non-distended, normal bowel sounds, no palpable masses, no hepatomegaly, no splenomegaly, no bruit Extremities: no cyanosis, no clubbing, no edema Skin: normal turgor Neurological - other findings: Right hemiplegia, encephalopathy, aphasia Musculoskeletal: generalized weakness Hosp A/P (1) Intracerebral hemorrhage Code(s): I61.9 - NONTRAUMATIC INTRACEREBRAL HEMORRHAGE, UNSPECIFIED Status: Acute (2) Right hemiplegia Code(s): G81.91 - HEMIPLEGIA, UNSPECIFIED AFFECTING RIGHT DOMINANT SIDE Status : Acute (3) Aphasia Code(s): R47.01 - APHASIA Status: Acute (4) Acute metabolic encephalopathy Code(s): G93.41 - METABOLIC ENCEPHALOPATHY Status: Acute (5) Hypertension Code(s): I10 - ESSENTIAL (PRIMARY) HYPERTENSION Status: Chronic (6) Transaminitis Code(s): R74.0 - NONSPEC ELEV OF LEVELS OF TRANSAMNS & LACTIC ACID DEHYDRGNSE Status: Acute (7) Atrial fibrillation with rapid ventricular response Code(s): I48.91 - UNSPECIFIED ATRIAL FIBRILLATION Status: Acute - Plan ICH: Large left anterior intraparenchymal bleed with communication to the ventricle and possible mild obstructive hydrocephalus. Admitted to neurosurgery. At this point it does not appear there is any intervention indicated or planned. Repeat scan did not show significant change. She initially showed some improvement but subsequently she appears to be stable or very slightly regressed. She is not following commands. She did manage to pull out her Dobbhoff tube. Replaced and feeds resumed. Appreciate dietitians recommendations. I did speak with her son Barrett. They certainly do want to pursue PEG tube if that becomes necessary. Will likely be ready to make a decision on PEG in the next day or two. Hypertension: Blood pressure has come up significantly. Continue with PRN's. Cardiology initiated IV ESE inhibitor, IV BB. Transaminitis: Trending downward. Recheck in a.m. Atrial fibrillation with rapid ventricular response: Patient had abrupt onset of A. fib with RVR. She was started on amiodarone. Today she is converted back to sinus rhythm. Still on IV amio. Continue DVT prophylaxis with SCDs. Anticoagulation contraindicated. PUD prophylaxis with famotidine. Disposition: She will likely benefit from some rehab when stable.
[2020-06-05 23:02] LABS: Magnesium 2.2 mg/dL (1.6-2.6); Potassium 3.3 mmol/L (3.5-5.1)
[2020-06-06] MEDS: Sodium Chloride 0.9% 1,000 ML IV SCH ×2 (00:11→17:47)
[2020-06-06] MEDS: Metoprolol Tartrate 5 MG/5 ML VIAL IVP SCH ×4 (00:14→17:47)
[2020-06-06] MEDS ORDERED: Electrolyte Replacement Protoc 1 EACH EACH PO PRN (01:21)
[2020-06-06] MEDS ORDERED: Potassium Chloride 40 MEQ in Sodium Chloride 0.9% 250 ML 250 ML IVPB SCH (01:30)
[2020-06-06] MEDS ORDERED: hydrALAZINE 20 MG/ML VIAL ONE (03:38)
[2020-06-06] MEDS ORDERED: Metoprolol Tartrate 5 MG/5 ML VIAL ONE (05:00)
[2020-06-06 06:14] LABS: #Eosinphils 0.1 thou/uL (0.0-0.7); #Lymphocytes 1.1 thou/uL (1.20-3.40); #Monocytes 1.2 thou/uL (0.11-0.59); #Neutrophils 10.2 thou/uL (1.40-6.50); %Basophils 0.1 % (0.0-1.0); %Eosinophils 0.6 % (0.0-10.0); %Lymphocytes 8.5 % (21.0-51.0); %Monocytes 9.6 % (0.0-10.0); %Neutrophils 81.2 % (42.0-75.0); Hemoglobin 14.4 g/dL (12.0-16.0); Mean Corpuscular HGB CONC 33.2 g/dL (32.0-36.0); Mean Corpuscular Hemoglobin 30.9 pg (27.0-31.0); Mean Platelet Volume 7.5 fL (7.4-10.4); Platelet Count 275 thou/uL (130-400); RBC Distribution Width 13.1 % (11.5-14.5); Red Blood Cell (RBC) Count 4.67 mill/uL (4.20-5.40); White Blood Cell (WBC) Count 12.5 thou/uL (4.8-10.8)
[2020-06-06 06:40] LABS: Anion Gap 13 mmol/L (10-20); BUN (Urea Nitrogen) 19 mg/dL (9.8-20.1); Calc. Creatinine Clearance 118 mL/min (70-130); Calcium 8.3 mg/dL (7.8-10.44); Carbon Dioxide 20 mmol/L (23-31); Chloride 106 mmol/L (98-107); Estimated GFR-MDRD Greater than 90; Glucose 147 mg/dL (83-110); Potassium 3.6 mmol/L (3.5-5.1); Sodium 135 mmol/L (136-145)
[2020-06-06] MEDS ORDERED: HYDROcodone/Acetaminophen 5/325 mg Tablet ONE (08:35)
[2020-06-06] MEDS ORDERED: Famotidine/PF 20 mg/2ml Vial ONE (08:35)
[2020-06-06] MEDS: Famotidine/PF 20 mg/2ml Vial SLOW IVP SCH ×2 (09:16→21:37)
[2020-06-06] MEDS: Enalaprilat Dihydrate 1.25 MG/ML VIAL SLOW IVP SCH ×3 (09:16→21:37)
[2020-06-06] MEDS ORDERED: Heparin 0 ML ONE (14:05)
[2020-06-06] MEDS: Ondansetron PF 4 MG/2 ML Vial IVP PRN (14:59)
[2020-06-06] MEDS: Amiodarone 450 MG, Admixture Fee 1 EACH in Dextrose 5% in Water 250 ML IVPB SCH (17:46)
--- NOTE | 2020-06-06 17:50 | PDOC.HOSPP ---
- Subjective Encounter Date: 06/06/20 non-verbal - Objective Vital Signs & Weight: Vital Signs (12 hours) Temp Pulse Pulse Pulse Resp BP BP 06/06/20 15:32 99.0 F 72 20 06/06/20 15:14 162/91 H 06/06/20 11:28 98.5 F 67 22 H 06/06/20 10:04 68 67 99/55 L 06/06/20 09:16 113/60 06/06/20 07:21 97.4 F L 84 20 06/06/20 07:20 97.4 F L 84 20 BP BP Pulse Ox 06/06/20 15:32 153/85 H 96 06/06/20 15:14 06/06/20 11:28 108/68 96 06/06/20 10:04 92/56 L 06/06/20 09:16 06/06/20 07:21 173/90 H 95 06/06/20 07:20 173/90 H 95 Weight Admit Weight 191 lb 5.776 oz Weight 191 lb 5.776 oz Most Recent Monitor Data Heart Rate from ECG 101 NIBP 141/99 NIBP BP-Mean 113 Respiration from ECG 26 SpO2 98 I&O: 06/05/20 06/06/20 06/07/20 06:59 06:59 06:59 Intake Total 1801 890.4 Output Total 100 600 Balance 1701 290.4 Result Diagrams: 06/06/20 04:00 06/06/20 03:30 Additional Labs: Accuchecks 06/06/20 06/06/20 06/05/20 16:29 10:43 20:44 POC Glucose 135 H 172 H 156 H Hospitalist ROS - Medication Medications: Active Medications Generic Name Dose Route Start Last Admin Trade Name Freq PRN Reason Stop Dose Admin Acetaminophen 650 mg 06/01/20 15:41 06/04/20 23:16 Tylenol [place] 650 mg Q6H PRN Administration Headache/Fever or Pain (1-3) Hydrocodone Bitart/Acetaminophen 1 tab 06/01/20 15:45 06/05/20 18:06 [place] 5/325 PO 1 tab Q4H PRN Administration Severe Pain (7-10) Enalaprilat 1.25 mg 06/04/20 14:00 06/06/20 15:14 Vasotec SLOW IVP 1.25 mg Q8HR LUCIA Administration Famotidine 20 mg 06/02/20 09:00 06/06/20 09:16 Pepcid SLOW IVP Not Given BID LUCIA Hydralazine HCl 10 mg 06/01/20 15:44 06/05/20 16:59 Apresoline SLOW IVP 10 mg Q15MIN PRN Administration SBP greater than 150 mmHg Sodium Chloride 1,000 mls @ 50 mls/hr 06/01/20 15:45 06/06/20 00:11 Normal Saline 0.9% IV 1,000 mls .Q20H LUCIA Administration Amiodarone HCl 450 mg/ 259 mls @ 0 mls/hr 06/02/20 17:30 06/05/20 11:30 Miscellaneous Medication 1 IVPB 259 mls each/ Dextrose/Water INF LUCIA Administration Protocol As Directed Metoprolol Tartrate 5 mg 06/04/20 18:00 06/06/20 12:58 Lopressor IVP 5 mg Q6H LUCIA Administration Ondansetron HCl 4 mg 06/01/20 15:45 06/06/20 14:59 Zofran IVP 4 mg Q6H PRN Administration Nausea/Vomiting Sodium Chloride 10 ml 06/01/20 15:45 06/04/20 09:15 Flush - Normal Saline IVF 10 ml PRN PRN Administration Saline Flush - Exam General Appearance: NAD Heart: RRR, no murmur, no gallops, no rubs, normal peripheral pulses Respiratory: CTAB, no wheezes, no rales, no ronchi, normal chest expansion, no tachypnea, normal percussion Gastrointestinal: soft, non-distended, normal bowel sounds, no palpable masses, no hepatomegaly, no splenomegaly, no bruit Extremities: no cyanosis, no clubbing, no edema Skin: normal turgor Neurological - other findings: Incomplete right hemiplegia, aphasia Psychiatric: normal affect, normal behavior, A&O x 3 Hosp A/P (1) Intracerebral hemorrhage Code(s): I61.9 - NONTRAUMATIC INTRACEREBRAL HEMORRHAGE, UNSPECIFIED Status: Acute (2) Right hemiplegia Code(s): G81.91 - HEMIPLEGIA, UNSPECIFIED AFFECTING RIGHT DOMINANT SIDE Status: Acute (3) Aphasia Code(s): R47.01 - APHASIA Status: Acute (4) Acute metabolic encephalopathy Code(s): G93.41 - METABOLIC ENCEPHALOPATHY Status: Acute (5) Hypertension Code(s): I10 - ESSENTIAL (PRIMARY) HYPERTENSION Status: Chronic (6) Transaminitis Code(s): R74.0 - NONSPEC ELEV OF LEVELS OF TRANSAMNS & LACTIC ACID DEHYDRGNSE Status: Acute (7) Atrial fibrillation with rapid ventricular response Code(s): I48.91 - UNSPECIFIED ATRIAL FIBRILLATION Status: Acute - Plan ICH: Large left anterior intraparenchymal bleed with communication to the ventricle and possible mild obstructive hydrocephalus. Admitted to neurosurgery. At this point it does not appear there is any intervention indicated or planned. Repeat scan did not show significant change. She initially showed some improvement but subsequently she appears to be stable or very slightly regressed. She is not following commands. She did manage to pull out her Dobbhoff tube. Replaced and feeds resumed. Appreciate dietitians recommendations. I did speak with her son today in the room. They certainly do want to pursue PEG tube if that becomes necessary. Communicated with Neurosurg. We will go ahead and consult GI for PEG placement. NS is planning a follow up MRI of the brain in the future to reassess for the possibility of underlying neoplasm once the blood has resolved. Hypertension: Blood pressure has come up significantly. Continue with PRN's. Cardiology initiated IV ESE inhibitor, IV BB. Transaminitis: Trending downward. Recheck in a.m. Atrial fibrillation with rapid ventricular response: Patient had abrupt onset of A. fib with RVR. She was started on amiodarone. Today she is converted back to sinus rhythm. Still on IV amio. Continue DVT prophylaxis with SCDs. Anticoagulation contraindicated. PUD prophylaxis with famotidine. Disposition: SHe will likely need placement once PEG is placed and meds are converted to ente ral.
--- NOTE | 2020-06-06 17:52 | PRG ---
DATE OF SERVICE: 06/06/2020 SUBJECTIVE: Ms. Hennessy remains unresponsive. OBJECTIVE: VITAL SIGNS: Her blood pressure is variable, most recent 153/85; pulse 72 and regular. LUNGS: Clear. CARDIAC: Normal S1 and normal S2. ABDOMEN: Soft and nontender. EXTREMITIES: There is no edema. ASSESSMENT: 1. Intracranial hemorrhage. 2. Paroxysmal atrial fibrillation, now maintaining sinus rhythm. PLAN: 1. She is on intravenous Vasotec. 2. She is on intravenous amiodarone. 3. I understand there is some consideration for placement of a PEG tube. Job ID: [id number]
[2020-06-07] MEDS: Metoprolol Tartrate 5 MG/5 ML VIAL IVP SCH ×2 (00:39→04:29)
[2020-06-07] MEDS: Enalaprilat Dihydrate 1.25 MG/ML VIAL SLOW IVP SCH ×3 (04:29→23:15)
[2020-06-07 05:22] LABS: ALT (SGPT) 38 U/L (8-55); AST (SGOT) 21 U/L (5-34); Albumin 3.7 g/dL (3.4-4.8); Alkaline Phosphatase 98 U/L (40-110); Anion Gap 12 mmol/L (10-20); BUN (Urea Nitrogen) 19 mg/dL (9.8-20.1); Bilirubin, Total 0.8 mg/dL (0.2-1.2); Calc. Creatinine Clearance 116 mL/min (70-130); Calcium 8.4 mg/dL (7.8-10.44); Carbon Dioxide 21 mmol/L (23-31); Chloride 107 mmol/L (98-107); Estimated GFR-MDRD Greater than 90; Globulin 2.9 g/dL (2.4-3.5); Glucose 120 mg/dL (83-110); Potassium 3.9 mmol/L (3.5-5.1); Protein, Total 6.6 g/dL (6.0-8.3); Sodium 136 mmol/L (136-145)
[2020-06-07 05:35] LABS: Hemoglobin 14.1 g/dL (12.0-16.0); Mean Corpuscular HGB CONC 33.5 g/dL (32.0-36.0); Mean Corpuscular Hemoglobin 31.2 pg (27.0-31.0); Platelet Count 266 thou/uL (130-400); RBC Distribution Width 12.9 % (11.5-14.5); Red Blood Cell (RBC) Count 4.51 mill/uL (4.20-5.40); White Blood Cell (WBC) Count 12.7 thou/uL (4.8-10.8)
[2020-06-07 05:36] LABS: Eosinophils 1 % (0-10); Lymphocytes 9 % (21-51); MDiff Complete? YES; Monocytes 8 % (0-10); Neutrophil 82 % (42-75)
--- NOTE | 2020-06-07 08:47 | RAD ---
EXAM: Single view of the chest HISTORY: Shortness of breath COMPARISON: None FINDINGS: Single view of the chest shows an enlarged cardiomediastinal silhouette. Bilateral perihil ar fullness is seen. Increased interstitial markings are present. Superimposed airspace opacities may be present. A Dobbhoff tube courses off the inferior aspect of the film. There may be a small le ft pleural effusion. No acute osseous abnormality. IMPRESSION: Findings are most consistent with congestive heart failure.
--- NOTE | 2020-06-07 08:59 | CON ---
DATE OF CONSULTATION: 06/06/2020 REASON FOR CONSULTATION: The patient had a CAT scan of the head done on admission, which revealed a large intracerebral bleeding. The patient has I was asked to see the patient by Dr. Arenas for possibly endoscopic gastrostomy tube placement. The patient is nonverbal acute CVA. The patient was seen in the room along with the patient's younger son and also her niece who works in the hospital , her name is Adina. The patient has right-sided hemiplegia and she is aphasic. She does not communicate and does not follow commands. No relevant history. ALLERGIES: SOCIAL HISTORY: There is no smoking MEDICAL ILLNESSES: Hypertension. No diabetes. No heart . PHYSICAL EXAMINATION: GENERAL: She is awake, but does not open her eyes, does not follow commands. She is afebrile, temperature is 99.0, pulse 72, . HEENT: conjunctivae are clear. NECK: Supple. CARDIOVASCULAR: Normal heart sounds. LUNGS: LABORATORY DATA: From today, WBC 12,500, chemistry panels from today, lytes are normal, BUN is 19, creatinine 0.58 head CAT scan, which showed intracerebral bleeding. CLINICAL IMPRESSION: 1. Acute CVA, . 2. Hypertension. 3. I did talk to her younger son explained about the procedure benefits and risks . I will hold Lovenox morning and hopefully the EGD and trach tube placement can be done. Job ID: [id number]
[2020-06-07] MEDS: Famotidine/PF 20 mg/2ml Vial SLOW IVP SCH ×2 (09:14→22:33)
--- NOTE | 2020-06-07 09:21 | PRG ---
DATE OF SERVICE: 06/07/2020 SUBJECTIVE: Ms. Hennessy is more awake today, does not follow commands, but more awake. OBJECTIVE: VITAL SIGNS: Blood pressure earlier 142/86 and now 170/110; pulse 100 when she wakes up, but she is in sinus. LUNGS: Clear. CARDIAC: Normal S1 and normal S2. ABDOMEN: Soft and nontender. EXTREMITIES: No edema. ASSESSMENT: 1. Status post intracerebral bleeding. 2. Hypertension. 3. Paroxysmal atrial fibrillation. PLAN: 1. PEG tube. 2. Subsequently, we will put her on carvedilol. 3. Change to oral amiodarone later. 4. Would change to oral ESE inhibitors or this can be given by the PEG tube. Job ID: [id number]
[2020-06-07 09:30] LABS: Bacteria/HPF 4+ HPF (None Seen); Bilirubin Negative (Negative); Blood, Urine Trace (Negative); Clarity Clear (Clear); Glucose, Urine (Dipstick) Normal (Negative); Ketone, Urine Negative (Negative); Leukocyte 75 Leu/uL (Negative); Nitrite Negative (Negative); Protein, Urine (Dipstick) Negative (Neg-Trace); Specific Gravity, Urine 1.016 (1.002-1.036); Squamous Epithelial 0-3 HPF (0-3); WBC/HPF 21-50 HPF (0-3)
[2020-06-07] MEDS: Amiodarone 450 MG, Admixture Fee 1 EACH in Dextrose 5% in Water 250 ML IVPB SCH (09:41)
[2020-06-07] MEDS ORDERED: Furosemide 40 MG/4 ML VIAL SLOW IVP SCH (10:30)
[2020-06-07] MEDS ORDERED: PROPOFOL 200 MG/20 ML VIAL ONE (10:47)
--- NOTE | 2020-06-07 11:00 | PDOC.HOSPP ---
- Subjective Encounter Date: 06/07/20 Subjective: Remains nonverbal. - Objective Vital Signs & Weight: Vital Signs (12 hours) Temp Pulse Resp BP BP Pulse Ox 06/07/20 07:54 98.1 F 101 H 32 H 170/110 H 95 06/07/20 05:30 18 142/86 H 06/07/20 04:50 161/91 H 06/07/20 04:29 171/112 H 06/07/20 04:00 99.4 F 72 30 H 174/98 H 94 L 06/07/20 00:40 82 179/102 H 06/07/20 00:00 99.0 F 63 18 119/64 92 L Weight Admit Weight 191 lb 5.776 oz Weight 191 lb 5.776 oz Most Recent Monitor Data Heart Rate from ECG 101 NIBP 141/99 NIBP BP-Mean 113 Respiration from ECG 26 SpO2 98 I&O: 06/06/20 06/07/20 06/08/20 06:59 06:59 06:59 Intake Total 890.4 2766 Output Total 600 1200 250 Balance 290.4 1566 -250 Result Diagrams: 06/07/20 04:42 06/07/20 04:42 Additional Labs: Accuchecks 06/07/20 06/07/20 06/06/20 10:24 06:07 21:09 POC Glucose 124 H 106 H 143 H 06/06/20 06/06/20 16:29 05:41 POC Glucose 135 H 134 H Hospitalist ROS - Medication Medications: Active Medications Generic Name Dose Route Start Last Admin Trade Name Freq PRN Reason Stop Dose Admin Acetaminophen 650 mg 06/01/20 15:41 06/04/20 23:16 Tylenol [place] 650 mg Q6H PRN Administration Headache/Fever or Pain (1-3) Hydrocodone Bitart/Acetaminophen 1 tab 06/01/20 15:45 06/05/20 18:06 [place] 5/325 PO 1 tab Q4H PRN Administration Severe Pain (7-10) Enalaprilat 1.25 mg 06/04/20 14:00 06/07/20 04:29 Vasotec SLOW IVP 1.25 mg Q8HR LUCIA Administration Famotidine 20 mg 06/02/20 09:00 06/07/20 09:14 Pepcid SLOW IVP 20 mg BID LUCIA Administration Furosemide 40 mg 06/07/20 10:30 06/07/20 10:50 Furosemide 40 Mg/4 Ml Vial SLOW IVP 06/07/20 13:00 40 mg NOW LUCIA Administration Hydralazine HCl 10 mg 06/01/20 15:44 06/05/20 16:59 Apresoline SLOW IVP 10 mg Q15MIN PRN Administration SBP greater than 150 mmHg Sodium Chloride 1,000 mls @ 50 mls/hr 06/01/20 15:45 06/06/20 17:47 Normal Saline 0.9% IV 1,000 mls .Q20H LUCIA Administration Amiodarone HCl 450 mg/ 259 mls @ 0 mls/hr 06/02/20 17:30 06/07/20 09:41 Miscellaneous Medication 1 IVPB 259 mls each/ Dextrose/Water INF LUCIA Administration Protocol As Directed Ondansetron HCl 4 mg 06/01/20 15:45 06/06/20 14:59 Zofran IVP 4 mg Q6H PRN Administration Nausea/Vomiting Sodium Chloride 10 ml 06/01/20 15:45 06/04/20 09:15 Flush - Normal Saline IVF 10 ml PRN PRN Administration Saline Flush - Exam General Appearance: NAD, awake alert General - other findings: Much more awake and alert today than my exam yesterday Heart: RRR, no murmur, no gallops, no rubs, normal peripheral pulses Respiratory: CTAB, no wheezes, no rales, no ronchi, normal chest expansion, no tachypnea, normal percussion Gastrointestinal: soft, non-distended, normal bowel sounds Extremities: no cyanosis, no clubbing, no edema Skin: normal turgor Neurological - other findings: Incomplete right hemiplegia, aphasia. Appears to follow commands today. Psychiatric - other findings: Occasionally makes modest eye contact. Hosp A/P (1) Intracerebral hemorrhage Code(s): I61.9 - NONTRAUMATIC INTRACEREBRAL HEMORRHAGE, UNSPECIFIED Status: Acute (2) Right hemiplegia Code(s): G81.91 - HEMIPLEGIA, UNSPECIFIED AFFECTING RIGHT DOMINANT SIDE Status: Acute (3) Aphasia Code(s): R47.01 - APHASIA Status: Acute (4) Acute metabolic encephalopathy Code(s): G93.41 - METABOLIC ENCEPHALOPATHY Status: Acute (5) Hypertension Code(s): I10 - ESSENTIAL (PRIMARY) HYPERTENSION Status: Chronic (6) Transaminitis Code(s): R74.0 - NONSPEC ELEV OF LEVELS OF TRANSAMNS & LACTIC ACID DEHYDRGNSE Status: Acute (7) Atrial fibrillation with rapid ventricular response Code(s): I48.91 - UNSPECIFIED ATRIAL FIBRILLATION Status: Acute (8) Fever Code(s): R50.9 - FEVER, UNSPECIFIED Status: Acute (9) Pulmonary edema Code(s): J81.1 - CHRONIC PULMONARY EDEMA Status: Acute (10) UTI (urinary tract infection) Status: Acute - Plan ICH: Large left anterior intraparenchymal bleed with communication to the ventricle and possible mild obstructive hydrocephalus. Admitted to neurosurgery. No intervention indicated or planned. Repeat scan did not show significant change. She has had some waxing and waning of her overall mental status. Seems to be following commands. She did manage to pull out her Dobbhoff tube. Replaced and feeds resumed. Should be getting PEG tube today. NS is planning a follow up MRI of the brain in the future to reassess for the possibility of underlying neoplasm once the blood has resolved. Hypertension: Blood pressure has come up significantly. Continue with PRN's. Cardiology initiated IV ESE inhibitor, IV BB. We will convert to enteral regimen once PEG tube is placed. Transaminitis: Trending downward. Ultimately resolved back to normal. Atrial fibrillation with rapid ventricular response: Patient had abrupt onset of A. fib with RVR. She was started on amiodarone. Converted back to sinus rhythm promptly. She is on IV amiodarone, convert to enteral when PEG is placed. Continue DVT prophylaxis with SCDs. Anticoagulation contraindicated. PUD prophylaxis with famotidine. Fever: Unclear if this was central fever. She has a slight white count as well. Chest x-ray and UA obtained today. Looks like there might be some urinary tract infection. UTI: Culture urine. Start IV Rocephin. Pulmonary edema: Chest x-ray today shows evidence of pulmonary edema. She has not had a huge amount of IV fluids. We will give IV Lasix. Echocardiogram. Disposition: SHe will likely need placement once PEG is placed and meds are converted to enteral.
[2020-06-07] MEDS: cefTRIAXone\\ROCEPHIN 500 MG in Sodium Chloride 0.9% 100 ML IVPB SCH (11:23)
[2020-06-07] MEDS: Ondansetron PF 4 MG/2 ML Vial IVP PRN (11:23)
[2020-06-07] MEDS ORDERED: Potassium Chloride 20 MEQ TAB PO SCH (13:15)
[2020-06-07] MEDS: Amiodarone 200 MG TAB PO SCH ×2 (15:01→22:33)
[2020-06-07] MEDS: Sodium Chloride 0.9% 1,000 ML IV SCH (15:17)
--- NOTE | 2020-06-07 18:00 | OP ---
DATE OF PROCEDURE: 06/07/2020 PROCEDURE PERFORMED: Esophagogastroduodenoscopy with percutaneous endoscopic gastrostomy tube placement. PREOPERATIVE DIAGNOSIS: Oropharyngeal dysphagia secondary to stroke. DESCRIPTION OF PROCEDURE: Informed consent was obtained. The patient was sedated with total intravenous anesthesia. The bite block was placed, and the endoscope was advanced easily to the second portion of the duodenum, and retroflexion was performed in the stomach. The esophagus was normal. The GE junction was normal. The stomach was normal including retroflexed views. The pylorus was normal. There was erosive duodenitis with multiple 4 mm erosions in the first portion of the duodenum. The second portion of the duodenum was unremarkable. Biopsies were obtained from the stomach, antrum, and body to rule out Helicobacter pylori. The stomach was fully insufflated. The appropriate site in the left upper quadrant below the left ribs was identified by transillumination and palpation. The patient received Ancef 2 g prior to the procedure. The skin was sterilized with chlorhexidine. The site was anesthetized with 5 mL of 1% lidocaine. A 1 cm skin incision was performed with a scalpel. The catheter was placed through the abdominal wall into the stomach under direct visualization easily in 1 attempt. The wire was passed through the catheter and grasped with a snare and pulled out through the patient's mouth. The 20-[place] gastrostomy tube was then attached to the wire and placed by the pull-through technique. The external bumper was placed at 5 cm. Antibiotic ointment was applied and the site was dressed. Second-look endoscopy showed the internal bumper to be in good position. Air was suctioned out, and the patient tolerated the procedure well. IMPRESSION: 1. Erosive duodenitis, which is likely secondary to stress ulcerations. Biopsies were obtained from the stomach to rule out Helicobacter pylori. 2. Otherwise normal EGD. 3. Successful placement of 20-Cong[place]ese gastrostomy tube with external bumper placed at 5 cm. RECOMMENDATIONS: 1. Proton-pump inhibitor. 2. Await histopathology. 3. Start feeds in 8 hours. 4. I want to reassess the gastrostomy site tomorrow. Job ID: [id number]
[2020-06-07] MEDS: Carvedilol 6.25 MG TAB PO SCH (18:02)
[2020-06-08] MEDS: Amiodarone 450 MG, Admixture Fee 1 EACH in Dextrose 5% in Water 250 ML IVPB SCH (03:25)
[2020-06-08 05:15] LABS: #Eosinphils 0.3 thou/uL (0.0-0.7); #Lymphocytes 0.8 thou/uL (1.20-3.40); #Neutrophils 10.9 thou/uL (1.40-6.50); %Basophils 0.4 % (0.0-1.0); %Eosinophils 2.5 % (0.0-10.0); %Lymphocytes 5.9 % (21.0-51.0); %Monocytes 7.6 % (0.0-10.0); %Neutrophils 83.6 % (42.0-75.0); Mean Corpuscular HGB CONC 32.4 g/dL (32.0-36.0); Mean Corpuscular Hemoglobin 30.1 pg (27.0-31.0); Mean Platelet Volume 8.5 fL (7.4-10.4); Platelet Count 266 thou/uL (130-400); RBC Distribution Width 12.8 % (11.5-14.5); Red Blood Cell (RBC) Count 4.63 mill/uL (4.20-5.40)
[2020-06-08 05:35] LABS: Anion Gap 15 mmol/L (10-20); BUN (Urea Nitrogen) 26 mg/dL (9.8-20.1); Calc. Creatinine Clearance 101 mL/min (70-130); Calcium 7.9 mg/dL (7.8-10.44); Carbon Dioxide 19 mmol/L (23-31); Chloride 102 mmol/L (98-107); Estimated GFR-MDRD 85; Glucose 183 mg/dL (83-110); Potassium 3.7 mmol/L (3.5-5.1); Sodium 132 mmol/L (136-145)
[2020-06-08] MEDS: Enalaprilat Dihydrate 1.25 MG/ML VIAL SLOW IVP SCH (06:54)
[2020-06-08] MEDS: Acetaminophen 325 MG TAB PER TUBE PRN (06:54)
[2020-06-08] MEDS ORDERED: Potassium Chloride 20 MEQ TAB PO SCH (09:30)
[2020-06-08] MEDS: Famotidine/PF 20 mg/2ml Vial SLOW IVP SCH (10:19)
[2020-06-08] MEDS: Amiodarone 200 MG TAB PO SCH ×3 (10:19→21:14)
[2020-06-08] MEDS: cefTRIAXone\\ROCEPHIN 500 MG in Sodium Chloride 0.9% 100 ML IVPB SCH (10:19)
[2020-06-08] MEDS ORDERED: Pantoprazole 40 MG GRANULES PACKET PER TUBE SCH (10:45)
[2020-06-08] MEDS ORDERED: Furosemide 40 MG/4 ML VIAL SLOW IVP SCH (11:30)
[2020-06-08] MEDS: Carvedilol 6.25 MG TAB PO SCH (11:33)
[2020-06-08] MEDS: Sodium Chloride 0.9% 1,000 ML IV SCH (11:34)
--- NOTE | 2020-06-08 14:04 | PDOC.HOSPP ---
- Subjective Encounter Date: 06/08/20 Subjective: Patient is still not significantly interactive. - Objective Vital Signs & Weight: Vital Signs (12 hours) Temp Pulse Resp BP BP Pulse Ox 06/08/20 12:00 97.4 F L 60 18 108/48 L 92 L 06/08/20 07:32 98.4 F 79 18 153/79 H 92 L 06/08/20 06:54 170/95 H 06/08/20 04:45 99.1 F 95 06/08/20 04:00 79 22 H 142/84 H Weight Admit Weight 191 lb 5.776 oz Weight 191 lb 5.776 oz Most Recent Monitor Data Heart Rate from ECG 101 NIBP 141/99 NIBP BP-Mean 113 Respiration from ECG 26 SpO2 98 I&O: 06/07/20 06/08/20 06/09/20 06:59 06:59 06:59 Intake Total 2766 2319 550 Output Total 1200 2600 Balance 1566 -281 550 Result Diagrams: 06/08/20 04:37 06/08/20 04:37 Additional Labs: Accuchecks 06/08/20 06/08/20 06/07/20 10:51 06:56 16:38 POC Glucose 89 108 H 114 H Hospitalist ROS - Medication Medications: Active Medications Generic Name Dose Route Start Last Admin Trade Name Jarekq PRN Reason Stop Dose Admin Acetaminophen 650 mg 06/01/20 15:41 06/04/20 23:16 Tylenol [place] 650 mg Q6H PRN Administration Headache/Fever or Pain (1-3) Acetaminophen 650 mg 06/08/20 04:48 06/08/20 06:54 Acetaminophen 325 Mg Tab PER TUBE 650 mg Q6H PRN Administration Headache/Fever or Pain (1-3) Hydrocodone Bitart/Acetaminophen 1 tab 06/01/20 15:45 06/05/20 18:06 [place] 5/325 PO 1 tab Q4H PRN Administration Severe Pain (7-10) Amiodarone HCl 400 mg 06/07/20 15:00 06/08/20 10:19 Amiodarone 200 Mg Tab PO 400 mg TID LUCIA Administration Ceftriaxone Sodium 500 mg/ 100 mls @ 200 mls/hr 06/07/20 11:00 06/08/20 10:19 Sodium Chloride IVPB 100 mls Q24HR LUCIA Administration Ondansetron HCl 4 mg 06/01/20 15:45 06/07/20 11:23 Zofran IVP 4 mg Q6H PRN Administration Nausea/Vomiting Sodium Chloride 10 ml 06/01/20 15:45 06/08/20 06:54 Flush - Normal Saline IVF 10 ml PRN PRN Administration Saline Flush - Exam General Appearance: NAD, awake alert Heart: RRR, no murmur, no gallops, no rubs, normal peripheral pulses Respiratory: no wheezes, no ronchi, normal chest expansion, no tachypnea, normal percussion, rales (Scattered bilateral) Gastrointestinal: soft, non-tender, non-distended, normal bowel sounds, no palpable masses, no hepatomegaly, no splenomegaly, no bruit Gastrointestinal - other findings: PEG tube is in place and appears to be functioning normally. Extremities: no cyanosis, no clubbing, no edema Skin: normal turgor Neurological - other findings: Incomplete right hemiplegia, aphasia. Psychiatric - other findings: Patient does not interact. Hosp A/P (1) Intracerebral hemorrhage Code(s): I61.9 - NONTRAUMATIC INTRACEREBRAL HEMORRHAGE, UNSPECIFIED Status: Acute (2) Right hemiplegia Code(s): G81.91 - HEMIPLEGIA, UNSPECIFIED AFFECTING RIGHT DOMINANT SIDE Status: Acute (3) Aphasia Code(s): R47.01 - APHASIA Status: Acute (4) Acute metabolic encephalopathy Code(s): G93.41 - METABOLIC ENCEPHALOPATHY Status: Acute (5) Hypertension Code(s): I10 - ESSENTIAL (PRIMARY) HYPERTENSION Status: Chronic (6) Transaminitis Code(s): R74.0 - NONSPEC ELEV OF LEVELS OF TRANSAMNS & LACTIC ACID DEHYDRGNSE Status: Acute (7) Atrial fibrillation with rapid ventricular response Code(s): I48.91 - UNSPECIFIED ATRIAL FIBRILLATION Status: Acute (8) Fever Code(s): R50.9 - FEVER, UNSPECIFIED Status: Acute (9) Pulmonary edema Code(s): J81.1 - CHRONIC PULMONARY EDEMA Status: Acute (10) UTI (urinary tract infection) Status: Acute - Plan ICH: Large left anterior intraparenchymal bleed with communication to the ventricle and possible mild obstructive hydrocephalus. Admitted to neurosurgery. No intervention indicated or planned. Repeat scan did not show significant change. She has had some waxing and waning of her overall mental status. Seems to be following commands. She did manage to pull out her Dobbhoff tube. Replaced and feeds resumed. She had PEG tube placed on 06/07/2020. She is getting feeds and medications and hydration via the tube. NS is planning a follow up MRI of the brain 6 weeks from the initial event to reassess for the possibility of underlying neoplasm once the blood has resolved. Hypertension: Initially the patient's blood pressure was low. Subsequently did come up to elevated levels. She is required some PRN's and scheduled ESE inhibitor's. All of that is being transitioned to enteral dosing today. Transaminitis: Trending downward. Ultimately, resolved back to normal. Atrial fibrillation with rapid ventricular response: Patient had abrupt onset of A. fib with RVR in the ICU. She was started on amiodarone. Converted back to sinus rhythm promptly. She has been on IV amiodarone. Due to some bradycardia on the morning of 06/08/2020 that has been held with the plan to resume at a lower dose on 06/09/2020. No anticoagulation due to the head bleed. Fever: Unclear if this was central fever. She has a slight white count as well. Chest x-ray and UA obtained today. Looks like there might be some urinary tract infection. Continue Rocephin. Would need to give some consideration to lower extremity Doppler if other source is not found. UTI: Urine culture growing presumptive E. coli. Continue IV Rocephin. Pulmonary edema: Chest x-ray on 06/07/2020 showed evidence of pulmonary edema. She has not had a huge amount of IV fluids. She received IV Lasix. Exam today seems to reveal persistent pulmonary edema. Echocardiogram pending. Disposition: She will likely need placement once PEG is placed and meds are converted to enteral and she is otherwise stable.
--- NOTE | 2020-06-08 14:33 | PRG ---
DATE OF SERVICE: 06/08/2020 SUBJECTIVE: Ms. Hennessy had a PEG tube placed successfully yesterday. She is awake and alert today. Mental status not follow commands. OBJECTIVE: VITAL SIGNS: Her blood pressure is variable, earlier today 153/79 and 108/48. Pulse, she is in sinus rhythm with a heart rate this morning was in the high 50s, now it is in the high 60s, PACs. LUNGS: Clear. CARDIAC: Normal S1 and S2. ABDOMEN: Soft, nontender. DIAGNOSTIC STUDIES: Chest x-ray yesterday did reveal congestive heart failure. ASSESSMENT: 1. Paroxysmal atrial fibrillation, now in sinus rhythm and sinus bradycardia. 2. Status post intracerebral bleeding. 3. Hypertension, somewhat labile. PLAN: 1. We will stop intravenous amiodarone. 2. We will transition to PEG. 3. Transition to oral lisinopril. 4. In view of bradycardia, we will skip carvedilol today and then resume it tomorrow at a lower dose. 5. Additional Lasix was given. 6. Echocardiogram is pending. Job ID: [id number]
--- NOTE | 2020-06-08 14:40 | PRG ---
DATE OF SERVICE: 06/08/2020 SUBJECTIVE: Ms. Hennessy is tolerating her tube feeds well. OBJECTIVE: VITAL SIGNS: Her temperature is 97.4. ABDOMEN: Soft, nontender, and nondistended. Bowel sounds are present. The gastrostomy tube site appears healthy. I loosened the external bumper to 5 cm. IMPRESSION: Oropharyngeal dysphagia secondary to stroke. RECOMMENDATIONS: 1. She will continue her gastrostomy tube feeds to titrate to goal rate per dietitian recs. 2. The PEG site should be cleaned with soap and water daily. 3. I will sign off. Please call if GI can be of assistance. Job ID: [id number]
--- NOTE | 2020-06-08 15:45 | PDOC.EVN ---
Event Note - Event Note Event Note: Had a good conversation with the patient's family branch customer service representative. That is Edel, her granddaughter. Explained the overall scenario, diagnoses and treatment plans and disposition plans. I would suspect once we have the urinary tract infection, pulmonary edema, hypertension stabilized and the PEG feed and medication regimens normalized and tolerated well we could start looking at disposition. I would likely be first part of next week. It would be great if we could get her some rehab. That may depend somewhat on her ability to follow commands in order to be able to do therapy. If not we would be looking at a skilled facility. The plan would be to repeat the MRI in 6 weeks to assess for possibility of underlying neoplasms. Further treatment beyond that would depend largely on her functional status. Answered all of her questions.
[2020-06-08] MEDS: Lisinopril 5 MG TAB PO SCH (21:14)
[2020-06-09] MEDS ORDERED: Diltiazem 125 MG in Sodium Chloride 0.9% 100 ML IVPB SCH (00:45)
[2020-06-09 05:52] LABS: #Eosinphils 0.1 thou/uL (0.0-0.7); #Lymphocytes 0.7 thou/uL (1.20-3.40); #Monocytes 1.3 thou/uL (0.11-0.59); #Neutrophils 15.4 thou/uL (1.40-6.50); %Eosinophils 0.5 % (0.0-10.0); %Lymphocytes 3.8 % (21.0-51.0); %Monocytes 7.2 % (0.0-10.0); %Neutrophils 88.5 % (42.0-75.0); Hemoglobin 14.8 g/dL (12.0-16.0); Mean Corpuscular HGB CONC 31.3 g/dL (32.0-36.0); Mean Corpuscular Hemoglobin 29.3 pg (27.0-31.0); Mean Corpuscular Volume 93.5 fL (78.0-98.0); Mean Platelet Volume 8.6 fL (7.4-10.4); Platelet Count 305 thou/uL (130-400); RBC Distribution Width 12.9 % (11.5-14.5); Red Blood Cell (RBC) Count 5.04 mill/uL (4.20-5.40); White Blood Cell (WBC) Count 17.4 thou/uL (4.8-10.8)
[2020-06-09 06:06] LABS: Anion Gap 16 mmol/L (10-20); BUN (Urea Nitrogen) 34 mg/dL (9.8-20.1); Calc. Creatinine Clearance 90 mL/min (70-130); Calcium 7.8 mg/dL (7.8-10.44); Carbon Dioxide 16 mmol/L (23-31); Chloride 103 mmol/L (98-107); Estimated GFR-MDRD 75; Glucose 315 mg/dL (83-110); Potassium 3.5 mmol/L (3.5-5.1); Sodium 131 mmol/L (136-145)
[2020-06-09] MEDS ORDERED: Dextrose 5% in Water 1,000 ML IV PRN (06:09)
[2020-06-09] MEDS ORDERED: Dextrose 50% Abboject 50 ML SYRINGE SLOW IVP PRN (06:09)
[2020-06-09] MEDS: HumaLOG 300 UNITS/3 ML VIAL SC PRN (06:21)
[2020-06-09] MEDS ORDERED: Potassium Chloride 20 MEQ TAB PO SCH (07:00)
[2020-06-09] MEDS ORDERED: Carvedilol 6.25 MG TAB PO SCH ×2 (08:00→12:00)
[2020-06-09 08:58] LABS: Actual Bicarbonate (HCO3a) 22.9 mEq/L (22-28); Base Excess (BEa) 0.8 mEq/L (-2.0 to +3.0); CO2 Tension 30.2 mmHg (35.0-45.0); Carboxyhemoglobin (COHb) 1.3 gm% (0.0-3.0); O2 Tension (PaO2), arterial 69.2 mmHg (> 70.0); Potassium - ABG Lab 3.71 mmol/L (3.70-5.30)
[2020-06-09 09:01] LABS: Puncture Site RRA
[2020-06-09] MEDS: Pantoprazole 40 MG GRANULES PACKET PER TUBE SCH (09:56)
[2020-06-09] MEDS: Amiodarone 200 MG TAB PO SCH ×3 (09:56→20:59)
[2020-06-09] MEDS ORDERED: Piperacillin/Tazobactam 3.375 GM in Sodium Chloride 0.9% 100 ML IVPB SCH (10:00)
[2020-06-09] MEDS: Lisinopril 5 MG TAB PO SCH ×2 (10:19→20:58)
--- NOTE | 2020-06-09 11:51 | PDOC.HOSPP ---
- Subjective Encounter Date: 06/09/20 Encounter Time: 09:00 Subjective: pt is not verbalizing much. Stat blood gas showed pH of 7.45 with a PCO2 of 30. She is also in resp. distress. Her blood pressure is on the low side. She is badly verbalizing much. She appears quite ill. But not toxic looking. Daughter at bedside. I discussed with her. Also discussed with RN. Patient would be better for now to move her to IMCU if we need to put her on BiPAP. So we will proactively move her to IMCU. Her white count jumped up. Repeat chest x-ray worsening infiltrate. COVID negative. Escalating the antibiotic to Zosyn. Echo report reviewed. Nursing went ahead and gave her the amiodarone 400 and Coreg by the time I get there. Will hold the diltiazem drip for now and move her to IMCU. If her heart rate jumped up and blood pressure high then we will restart her back on the drip. - Objective Vital Signs & Weight: Vital Signs (12 hours) Temp Pulse Resp BP BP Pulse Ox 06/09/20 10:19 121/78 06/09/20 09:55 121/78 06/09/20 08:54 99.5 F 116 H 44 H 108/72 92 L 06/09/20 07:20 100.4 F H 123 H 40 H 131/86 94 L 06/09/20 04:30 97.8 F 108 H 43 H 97/65 96 Weight Admit Weight 191 lb 5.776 oz Weight 191 lb 5.776 oz Most Recent Monitor Data Heart Rate from ECG 75 NIBP 94/55 NIBP BP-Mean 68 Respiration from ECG 26 SpO2 97 I&O: 06/08/20 06/09/20 06/10/20 06:59 06:59 06:59 Intake Total 2319 4664 Output Total 2600 1550 Balance -281 3114 Result Diagrams: 06/09/20 05:21 06/09/20 05:21 Additional Labs: Accuchecks 06/09/20 06/08/20 06/08/20 06:09 19:55 16:53 POC Glucose 229 H 183 H 103 H Hospitalist ROS - Medication Medications: Active Medications Generic Name Dose Route Start Last Admin Trade Name Freq PRN Reason Stop Dose Admin Acetaminophen 650 mg 06/01/20 15:41 06/04/20 23:16 Tylenol [place] 650 mg Q6H PRN Administration Headache/Fever or Pain (1-3) Acetaminophen 650 mg 06/08/20 04:48 06/08/20 06:54 Acetaminophen 325 Mg Tab PER TUBE 650 mg Q6H PRN Administration Headache/Fever or Pain (1-3) Hydrocodone Bitart/Acetaminophen 1 tab 06/01/20 15:45 06/05/20 18:06 [place] 5/325 PO 1 tab Q4H PRN Administration Severe Pain (7-10) Amiodarone HCl 400 mg 06/07/20 15:00 06/09/20 09:56 Amiodarone 200 Mg Tab PO 400 mg TID LUCIA Administration Carvedilol 6.25 mg 06/09/20 08:00 06/09/20 09:55 Carvedilol 6.25 Mg Tab PO 6.25 mg BID-WM LUCIA Administration Insulin Human Lispro 0 units 06/09/20 06:09 06/09/20 06:21 Humalog 300 Units/3 Ml Vial SC 3 unit .MILD SLIDING SCALE PRN Administration Mild Correctional Scale Lisinopril 5 mg 06/08/20 21:00 06/09/20 10:19 Lisinopril 5 Mg Tab PO Not Given BID LUCIA Ondansetron HCl 4 mg 06/01/20 15:45 06/07/20 11:23 Zofran IVP 4 mg Q6H PRN Administration Nausea/Vomiting Pantoprazole Sodium 40 mg 06/09/20 09:00 06/09/20 09:56 Pantoprazole 40 Mg Granules Packet PER TUBE 40 mg DAILY LUCIA Administration Sodium Chloride 10 ml 06/01/20 15:45 06/08/20 21:13 Flush - Normal Saline IVF 10 ml PRN PRN Administration Saline Flush - Exam General Appearance: ill appearing General - other findings: Tachypneic alert oriented x1 nonverbal Eye: PERRL ENT: normocephalic atraumatic Neck: supple Heart: RRR Respiratory: tachypneic Gastrointestinal: soft, normal bowel sounds Neurological: no focal deficits Psychiatric: oriented to person Hosp A/P - Plan ICH: Large left anterior intraparenchymal bleed with communication to the ventricle and possible mild obstructive hydrocephalus. Admitted to neurosurgery. No intervention indicated or planned. -PEG tube placed on 06/07/2020. NS is planning a follow up MRI of the brain 6 weeks from the initial event to reassess for the possibility of underlying neoplasm once the blood has resolved. Hypertension: Transaminitis: Trending downward. Ultimately, resolved back to normal. Needs periodic checkup as patient will be on amiodarone. Atrial fibrillation with rapid ventricular response: -Will hold diltiazem drip for now it appears she is back in sinus rhythm. I will reduce the amiodarone dose as well as Coreg. -We will get a TSH for baseline as well. Fever: And UTI UTI: Leukocytosis Urine culture growing presumptive E. coli. Due to the jump in white count and worsening infiltrate we will escalate antibiotic to Zosyn. - Pulmonary edema: Chest x-ray on 06/07/2020 showed evidence of pulmonary edema. echo ef of 55% 19th Stat blood gas showed pH of 7.45 with a PCO2 of 30. She is also in resp. distress. Her blood pressure is on the low side. She is badly verbalizing much. She appears quite ill. But not toxic looking. Daughter at bedside. I discussed with her. Also discussed with RN. Patient would be better for now to move her to IMCU if we need to put her on BiPAP. So we will proactively move her to IMCU. Her white count jumped up. Repeat chest x-ray worsening infiltrate. COVID negative. Escalating the antibiotic to Zosyn. Echo report reviewed. Nursing went ahead and gave her the amiodarone 400 and Coreg by the time I get there. Will hold the diltiazem drip for now and move her to IMCU. If her heart rate jumped up and blood pressure high then we will restart her back on the drip. dispo - SNF as she may not be a candidate for home with home health.
[2020-06-09] MEDS: Piperacillin/Tazobactam 3.375 GM in Sodium Chloride 0.9% 100 ML IVPB SCH ×2 (13:25→20:58)
[2020-06-09] MEDS: Carvedilol 6.25 MG TAB PO SCH (16:09)
--- NOTE | 2020-06-09 16:15 | RAD ---
EXAM: CHEST ONE VIEW PORTABLE: 06/09/20 HISTORY: Tachypnea. COMPARISON: 06/07/20 FINDINGS: Poor inspiration with bilateral vascular congestion and some interstitial and alveolar opacity change s somewhat diffusely through the lung zones, particularly in the perihilar regions with somewhat prom inent nodular hilar areas bilaterally. This could represent some asymmetric pulmonary edema or atypic al pneumonia including the viral pneumonias. No significant pleural effusion. IMPRESSION: Bilateral vascular congestion with some interstitial and alveolar opacity changes bilaterally with kristal rderline sized heart favored to be some congestive heart failure, although atypical bilateral pneumon ia including the viral pneumonias could have a similar appearance. Continued short term follow-up. POS: OFF
[2020-06-09] MEDS: Acetaminophen 325 MG TAB PER TUBE PRN (20:59)
[2020-06-10 03:33] LABS: #Eosinphils 0.8 thou/uL (0.0-0.7); #Lymphocytes 1.3 thou/uL (1.20-3.40); #Monocytes 1.9 thou/uL (0.11-0.59); #Neutrophils 10.8 thou/uL (1.40-6.50); %Basophils 0.1 % (0.0-1.0); %Eosinophils 5.3 % (0.0-10.0); %Lymphocytes 8.5 % (21.0-51.0); %Monocytes 12.9 % (0.0-10.0); %Neutrophils 73.2 % (42.0-75.0); Hemoglobin 13.9 g/dL (12.0-16.0); Mean Corpuscular HGB CONC 32.9 g/dL (32.0-36.0); Mean Corpuscular Volume 94.2 fL (78.0-98.0); Mean Platelet Volume 8.8 fL (7.4-10.4); Platelet Count 250 thou/uL (130-400); RBC Distribution Width 12.9 % (11.5-14.5); Red Blood Cell (RBC) Count 4.47 mill/uL (4.20-5.40); White Blood Cell (WBC) Count 14.7 thou/uL (4.8-10.8)
[2020-06-10 03:59] LABS: Anion Gap 14 mmol/L (10-20); BUN (Urea Nitrogen) 29 mg/dL (9.8-20.1); Calc. Creatinine Clearance 118 mL/min (70-130); Carbon Dioxide 19 mmol/L (23-31); Chloride 105 mmol/L (98-107); Estimated GFR-MDRD Greater than 90; Glucose 82 mg/dL (83-110); Potassium 4.5 mmol/L (3.5-5.1); Sodium 133 mmol/L (136-145)
[2020-06-10] MEDS: Piperacillin/Tazobactam 3.375 GM in Sodium Chloride 0.9% 100 ML IVPB SCH ×3 (04:54→21:17)
[2020-06-10] MEDS: Lisinopril 5 MG TAB PO SCH ×2 (08:14→21:17)
[2020-06-10] MEDS: Amiodarone 200 MG TAB PO SCH ×3 (08:14→21:17)
[2020-06-10] MEDS: Pantoprazole 40 MG GRANULES PACKET PER TUBE SCH (08:14)
[2020-06-10] MEDS: Carvedilol 6.25 MG TAB PO SCH ×2 (08:14→17:01)
[2020-06-10] MEDS: traMADol HCl 50 MG TAB PO PRN ×2 (11:40→21:16)
--- NOTE | 2020-06-10 14:32 | PDOC.HOSPP ---
- Subjective Encounter Date: 06/10/20 Encounter Time: 14:20 Subjective: Patient remained the same she is hemodynamically stable. No respiratory distress. Still she is nonverbal. Monitor shows sinus rhythm and systolic blood pressure in the 120s. - Objective Vital Signs & Weight: Vital Signs (12 hours) Temp Pulse BP Pulse Ox 06/10/20 11:41 97.6 F 06/10/20 08:14 75 119/63 06/10/20 08:00 97 06/10/20 07:54 96.8 F L 06/10/20 04:00 97.2 F L Weight Admit Weight 191 lb 5.776 oz Weight 191 lb 5.776 oz Most Recent Monitor Data Heart Rate from ECG 70 NIBP 141/70 NIBP BP-Mean 93 Respiration from ECG 26 SpO2 92 I&O: 06/09/20 06/10/20 06/11/20 06:59 06:59 06:59 Intake Total 4664 3446 Output Total 1550 Balance 3114 3446 Result Diagrams: 06/10/20 03:19 06/10/20 03:19 Additional Labs: Accuchecks 06/10/20 06/10/20 06/09/20 11:05 05:53 21:31 POC Glucose 123 H 101 H 147 H 06/09/20 16:03 POC Glucose 138 H Hospitalist ROS - Medication Medications: Active Medications Generic Name Dose Route Start Last Admin Trade Name Freq PRN Reason Stop Dose Admin Acetaminophen 650 mg 06/01/20 15:41 06/04/20 23:16 Tylenol [place] 650 mg Q6H PRN Administration Headache/Fever or Pain (1-3) Acetaminophen 650 mg 06/08/20 04:48 06/09/20 20:59 Acetaminophen 325 Mg Tab PER TUBE 650 mg Q6H PRN Administration Headache/Fever or Pain (1-3) Amiodarone HCl 200 mg 06/09/20 15:00 06/10/20 08:14 Amiodarone 200 Mg Tab PO 200 mg TID LUCIA Administration Carvedilol 3.125 mg 06/09/20 17:00 06/10/20 08:14 Carvedilol 6.25 Mg Tab PO 3.125 mg BID-WM LUCIA Administration Piperacillin Sod/Tazobactam 100 mls @ 200 mls/hr 06/09/20 12:00 06/10/20 11:40 Sod 3.375 gm/ Sodium Chloride IVPB 100 mls 0400,1200,2000 LUCIA Administration Insulin Human Lispro 0 units 06/09/20 06:09 06/09/20 06:21 Humalog 300 Units/3 Ml Vial SC 3 unit .MILD SLIDING SCALE PRN Administration Mild Correctional Scale Lisinopril 5 mg 06/08/20 21:00 06/10/20 08:14 Lisinopril 5 Mg Tab PO 5 mg BID LUCIA Administration Ondansetron HCl 4 mg 06/01/20 15:45 06/07/20 11:23 Zofran IVP 4 mg Q6H PRN Administration Nausea/Vomiting Pantoprazole Sodium 40 mg 06/09/20 09:00 06/10/20 08:14 Pantoprazole 40 Mg Granules Packet PER TUBE 40 mg DAILY LUCIA Administration Sodium Chloride 10 ml 06/01/20 15:45 06/08/20 21:13 Flush - Normal Saline IVF 10 ml PRN PRN Administration Saline Flush Tramadol HCl 50 mg 06/01/20 15:49 06/10/20 11:40 Ultram PO 50 mg Q6H PRN Administration Mild Pain (1-3) - Exam General Appearance: NAD, ill appearing Eye: PERRL ENT: normocephalic atraumatic Neck: supple Heart: RRR Respiratory: CTAB, normal chest expansion Gastrointestinal: soft, normal bowel sounds Gastrointestinal - other findings: Abdominal binder to protect her PEG tube Neurological: no new deficit Psychiatric: not oriented Hosp A/P - Plan ICH: Large left anterior intraparenchymal bleed with communication to the ventricle and possible mild obstructive hydrocephalus. Admitted to neurosurgery. No intervention indicated or planned. -PEG tube placed on 06/07/2020. NS is planning a follow up MRI of the brain 6 weeks from the initial event to re assess for the possibility of underlying neoplasm once the blood has resolved. Hypertension: Transaminitis: Trending downward. Ultimately, resolved back to normal. Needs periodic checkup as patient will be on amiodarone. Atrial fibrillation with rapid ventricular response: -Will hold diltiazem drip for now it appears she is back in sinus rhythm. I will reduce the amiodarone dose as well as Coreg. -We will get a TSH for baseline as well. Fever: And UTI UTI: Leukocytosis Urine culture growing presumptive E. coli. Due to the jump in white count and worsening infiltrate we will escalate antibiotic to Zosyn. - Pulmonary edema: Chest x-ray on 06/07/2020 showed evidence of pulmonary edema. echo ef of 55% Stat blood gas showed pH of 7.45 with a PCO2 of 30. She is also in resp. distress. Her blood pressure is on the low side. She is badly verbalizing much. She appears quite ill. But not toxic looking. Daughter at bedside. I discussed with her. Also discussed with RN. Patient would be better for now to move her to IMCU if we need to put her on BiPAP. So we will proactively move her to IMCU. Her white count jumped up. Repeat chest x-ray worsening i nfiltrate. COVID negative. Escalating the antibiotic to Zosyn. Echo report reviewed. Nursing went ahead and gave her the amiodarone 400 and Coreg by the time I get there. Will hold the diltiazem drip for now and move her to IMCU. If her heart rate jumped up and blood pressure high then we will restart her back on the drip. dispo - SNF as she may not be a candidate for home with home health. 20th Patient is stable to transfer to the stroke floor. no improvement neurologically. -Plan for discharge to the care home facility.
[2020-06-11 04:40] LABS: #Eosinphils 0.6 thou/uL (0.0-0.7); #Monocytes 1.3 thou/uL (0.11-0.59); #Neutrophils 9.8 thou/uL (1.40-6.50); %Basophils 0.2 % (0.0-1.0); %Eosinophils 4.9 % (0.0-10.0); %Lymphocytes 7.8 % (21.0-51.0); %Monocytes 10.3 % (0.0-10.0); %Neutrophils 76.7 % (42.0-75.0); Hemoglobin 13.8 g/dL (12.0-16.0); Mean Corpuscular HGB CONC 31.5 g/dL (32.0-36.0); Mean Corpuscular Hemoglobin 29.9 pg (27.0-31.0); Mean Corpuscular Volume 94.9 fL (78.0-98.0); Mean Platelet Volume 8.4 fL (7.4-10.4); Platelet Count 292 thou/uL (130-400); RBC Distribution Width 12.7 % (11.5-14.5); Red Blood Cell (RBC) Count 4.62 mill/uL (4.20-5.40); White Blood Cell (WBC) Count 12.8 thou/uL (4.8-10.8)
[2020-06-11 05:01] LABS: Anion Gap 13 mmol/L (10-20); BUN (Urea Nitrogen) 24 mg/dL (9.8-20.1); Calc. Creatinine Clearance 118 mL/min (70-130); Calcium 8.2 mg/dL (7.8-10.44); Carbon Dioxide 22 mmol/L (23-31); Chloride 104 mmol/L (98-107); Estimated GFR-MDRD Greater than 90; Glucose 97 mg/dL (83-110); Potassium 4.7 mmol/L (3.5-5.1); Sodium 134 mmol/L (136-145)
[2020-06-11] MEDS: Piperacillin/Tazobactam 3.375 GM in Sodium Chloride 0.9% 100 ML IVPB SCH ×3 (05:08→20:11)
--- NOTE | 2020-06-11 09:31 | PRG ---
DATE OF SERVICE: 06/11/2020 SUBJECTIVE: Ms. Hennessy is resting, appears comfortable. She remains nonverbal. OBJECTIVE: VITAL SIGNS: Blood pressure 116/52, pulse 90 earlier, now it is in the 100 to 110, atrial fibrillation. LUNGS: Clear. CARDIAC: Irregularly irregular. ABDOMEN: Soft and nontender. ASSESSMENT: 1. Status post intracranial hemorrhage. 2. Paroxysmal atrial fibrillation. 3. Previously had some bradycardia. PLAN: 1. Increase the amiodarone to 400 mg three times a day. 2. We will hold beta myrtle in view of history of bradycardia. 3. Cannot be anticoagulated due to intracranial hemorrhage. Job ID: [id number]
[2020-06-11] MEDS: Amiodarone 200 MG TAB PO SCH ×4 (10:37→20:11)
[2020-06-11] MEDS: Lisinopril 5 MG TAB PO SCH ×2 (10:37→20:11)
[2020-06-11] MEDS: traMADol HCl 50 MG TAB PO PRN ×2 (10:37→20:11)
[2020-06-11] MEDS: Pantoprazole 40 MG GRANULES PACKET PER TUBE SCH (10:37)
[2020-06-11] MEDS: Carvedilol 6.25 MG TAB PO SCH (10:38)
[2020-06-11] MEDS: HumaLOG 300 UNITS/3 ML VIAL SC PRN ×2 (10:59→16:47)
--- NOTE | 2020-06-11 11:56 | PDOC.HOSPP ---
- Subjective Encounter Date: 06/11/20 Encounter Time: 08:50 Subjective: Patient is not verbal. There is no improvement in her mentation needed. She is tachypneic this morning. Blood pressure is little elevated. Satting 97% in room air. Amiodarone increased to 400 mg 3 times a day and Coreg was on hold. - Objective Vital Signs & Weight: Vital Signs (12 hours) Temp Pulse Resp BP BP Pulse Ox 06/11/20 11:36 98.7 F 83 22 H 154/69 H 97 06/11/20 10:38 130/74 06/11/20 10:37 91 06/11/20 07:20 98.7 F 91 26 H 116/52 L 90 L 06/11/20 02:59 98.6 F 70 20 140/71 96 06/11/20 00:00 98.1 F 79 137/61 97 Weight Admit Weight 191 lb 5.776 oz Weight 191 lb 5.776 oz Most Recent Monitor Data Heart Rate from ECG 70 NIBP 141/70 NIBP BP-Mean 93 Respiration from ECG 26 SpO2 92 I&O: 06/10/20 06/11/20 06/12/20 06:59 06:59 06:59 Intake Total 3446 3694 Output Total 600 Balance 3446 3094 Result Diagrams: 06/11/20 04:13 06/11/20 04:13 Additional Labs: Accuchecks 06/11/20 06/11/20 06/10/20 10:48 04:37 21:16 POC Glucose 168 H 107 H 164 H 06/10/20 16:45 POC Glucose 113 H Hospitalist ROS - Medication Medications: Active Medications Generic Name Dose Route Start Last Admin Trade Name Freq PRN Reason Stop Dose Admin Acetaminophen 650 mg 06/01/20 15:41 06/04/20 23:16 Tylenol [place] 650 mg Q6H PRN Administration Headache/Fever or Pain (1-3) Acetaminophen 650 mg 06/08/20 04:48 06/09/20 20:59 Acetaminophen 325 Mg Tab PER TUBE 650 mg Q6H PRN Administration Headache/Fever or Pain (1-3) Amiodarone HCl 400 mg 06/11/20 09:00 06/11/20 10:37 Amiodarone 200 Mg Tab PO 400 mg TID LUCIA Administration Piperacillin Sod/Tazobactam 100 mls @ 200 mls/hr 06/09/20 12:00 06/11/20 05:08 Sod 3.375 gm/ Sodium Chloride IVPB 100 mls 0400,1200,2000 LUCIA Administration Insulin Human Lispro 0 units 06/09/20 06:09 06/11/20 10:59 Humalog 300 Units/3 Ml Vial SC 2 unit .MILD SLIDING SCALE PRN Administration Mild Correctional Scale Lisinopril 5 mg 06/08/20 21:00 06/11/20 10:37 Lisinopril 5 Mg Tab PO 5 mg BID LUCIA Administration Ondansetron HCl 4 mg 06/01/20 15:45 06/07/20 11:23 Zofran IVP 4 mg Q6H PRN Administration Nausea/Vomiting Pantoprazole Sodium 40 mg 06/09/20 09:00 06/11/20 10:37 Pantoprazole 40 Mg Granules Packet PER TUBE 40 mg DAILY LUCIA Administration Sodium Chloride 10 ml 06/01/20 15:45 06/10/20 21:17 Flush - Normal Saline IVF 10 ml PRN PRN Administration Saline Flush Tramadol HCl 50 mg 06/01/20 15:49 06/11/20 10:37 Tramadol Hcl 50 Mg Tab PO 50 mg Q6H PRN Administration Mild Pain (1-3) - Exam General Appearance: ill appearing Eye: PERRL, anicteric sclera ENT: normocephalic atraumatic Neck: supple Heart: irregular Respiratory: CTAB, normal chest expansion Gastrointestinal: soft, normal bowel sounds Neurological: no new deficit Psychiatric: not oriented Hosp A/P - Plan ICH: Large left anterior intraparenchymal bleed with communication to the ventricle and possible mild obstructive hydrocephalus. Admitted to neurosurgery. No intervention indicated or planned. -PEG tube placed on 06/07/2020. NS is planning a follow up MRI of the brain 6 weeks from the initial event to reassess for the possibility of underlying neoplasm once the blood has resolved. Hypertension: Transaminitis: Trending downward. Ultimately, resolved back to normal. Needs periodic checkup as patient will be on amiodarone. Atrial fibrillation with rapid ventricular response: -Will hold diltiazem drip for now it appears she is back in sinus rhythm. I will reduce the amiodarone dose as well as Coreg. -We will get a TSH for baseline as well. Fever: And UTI UTI: Leukocytosis Urine culture growing presumptive E. coli. Due to the jump in white count and worsening infiltrate we will escalate antibiotic to Zosyn. - Pulmonary edema: Chest x-ray on 06/07/2020 showed evidence of pulmonary edema. echo ef of 55% Stat blood gas showed pH of 7.45 with a PCO2 of 30. She is also in resp. distress. Her blood pressure is on the low side. She is badly verbalizing much. She appears quite ill. But not toxic looking. Daughter at bedside. I discussed with her. Also discussed with RN. Patient would be better for now to move her to IMCU if we need to put her on BiPAP. So we will proactively move her to IMCU. Her white count jumped up. Repeat chest x-ray worsening infiltrate. COVID negative. Escalating the antibiotic to Zosyn. Echo report reviewed. Nursing went ahead and gave her the amiodarone 400 and Coreg by the time I get there. Will hold the diltiazem drip for now and move her to IMCU. If her heart rate jumped up and blood pressure high then we will restart her back on the drip. dispo - SNF as she may not be a candidate for home with home health. Patient is stable to transfer to the stroke floor. no improvement neurologically. -Plan for discharge to the longterm facility. Amiodarone increased to 400 mg 3 times a day and Coreg was on hold. Sats are getting better. Afebrile for the last 48 hours. Pending rehab.
[2020-06-12] MEDS: Piperacillin/Tazobactam 3.375 GM in Sodium Chloride 0.9% 100 ML IVPB SCH ×2 (03:40→11:25)
[2020-06-12 05:07] LABS: #Basophils 0.1 thou/uL (0.0-0.2); #Eosinphils 0.6 thou/uL (0.0-0.7); #Lymphocytes 1.1 thou/uL (1.20-3.40); #Monocytes 1.3 thou/uL (0.11-0.59); #Neutrophils 8.5 thou/uL (1.40-6.50); %Basophils 0.4 % (0.0-1.0); %Eosinophils 5.4 % (0.0-10.0); %Lymphocytes 9.4 % (21.0-51.0); %Monocytes 11.2 % (0.0-10.0); %Neutrophils 73.5 % (42.0-75.0); Hemoglobin 13.9 g/dL (12.0-16.0); Mean Corpuscular HGB CONC 31.7 g/dL (32.0-36.0); Mean Corpuscular Hemoglobin 30.4 pg (27.0-31.0); Mean Platelet Volume 8.5 fL (7.4-10.4); Platelet Count 302 thou/uL (130-400); RBC Distribution Width 12.7 % (11.5-14.5); Red Blood Cell (RBC) Count 4.55 mill/uL (4.20-5.40); White Blood Cell (WBC) Count 11.5 thou/uL (4.8-10.8)
[2020-06-12 05:25] LABS: Anion Gap 15 mmol/L (10-20); BUN (Urea Nitrogen) 19 mg/dL (9.8-20.1); Calc. Creatinine Clearance 125 mL/min (70-130); Calcium 8.2 mg/dL (7.8-10.44); Carbon Dioxide 20 mmol/L (23-31); Chloride 100 mmol/L (98-107); Estimated GFR-MDRD Greater than 90; Glucose 76 mg/dL (83-110); Potassium 5.3 mmol/L (3.5-5.1); Sodium 130 mmol/L (136-145)
[2020-06-12] MEDS: traMADol HCl 50 MG TAB PO PRN ×2 (08:23→21:51)
[2020-06-12] MEDS: Lisinopril 5 MG TAB PO SCH (08:23)
[2020-06-12] MEDS: Amiodarone 200 MG TAB PO SCH ×3 (08:23→21:50)
[2020-06-12] MEDS: Pantoprazole 40 MG GRANULES PACKET PER TUBE SCH (08:23)
[2020-06-12] MEDS ORDERED: Furosemide 20 MG/2 ML VIAL SLOW IVP SCH (09:00)
--- NOTE | 2020-06-12 09:20 | PRG ---
DATE OF SERVICE: 06/12/2020 SUBJECTIVE: Ms. Hennessy remains nonverbal, looks comfortable. No complaints. OBJECTIVE: VITAL SIGNS: Blood pressure 140/60, pulse 70, in sinus. LUNGS: Clear. CARDIAC: Normal S1 and normal S2. ABDOMEN: Soft and nontender. EXTREMITIES: There is no edema. PERTINENT LABORATORY DATA: Her potassium is 5.3. ASSESSMENT: 1. Paroxysmal atrial fibrillation, now in sinus rhythm. 2. Hypertension, controlled. 3. Diastolic heart failure, appears stable. PLAN: 1. Give her daily furosemide. 2. Continue lisinopril. 3. Continue amiodarone. 4. We will check a BNP tomorrow. Job ID: [id number]
--- NOTE | 2020-06-12 11:53 | PDOC.HOSPP ---
- Subjective Encounter Date: 06/12/20 Encounter Time: 08:55 Subjective: Patient remains nonverbal but she is more alert and she understand what is going on. She is just not able to verbalize anything. - Objective Vital Signs & Weight: Vital Signs (12 hours) Temp Pulse Pulse Pulse Resp BP BP 06/12/20 09:01 70 75 134/61 145/76 H 06/12/20 08:23 75 06/12/20 07:40 06/12/20 07:15 97.8 F 75 17 06/12/20 04:21 06/12/20 04:00 98.0 F 74 16 06/12/20 00:00 97.9 F 72 18 BP Pulse Ox 06/12/20 09:01 06/12/20 08:23 06/12/20 07:40 94 L 06/12/20 07:15 141/65 H 94 L 06/12/20 04:21 140/63 06/12/20 04:00 153/76 H 96 06/12/20 00:00 111/46 L 98 Weight Admit Weight 191 lb 5.776 oz Weight 191 lb 5.776 oz Most Recent Monitor Data Heart Rate from ECG 70 NIBP 141/70 NIBP BP-Mean 93 Respiration from ECG 26 SpO2 92 I&O: 06/11/20 06/12/20 06/13/20 06:59 06:59 06:59 Intake Total 3694 2088 Output Total 600 1400 Balance 3094 688 Result Diagrams: 06/12/20 04:24 06/12/20 04:24 Additional Labs: Accuchecks 06/12/20 06/12/20 06/11/20 10:44 05:59 20:39 POC Glucose 147 H 122 H 87 06/11/20 06/09/20 06/07/20 16:32 11:30 20:31 POC Glucose 201 H 126 H 134 H Hospitalist ROS - Medication Medications: Active Medications Generic Name Dose Route Start Last Admin Trade Name Freq PRN Reason Stop Dose Admin Acetaminophen 650 mg 06/01/20 15:41 06/04/20 23:16 Tylenol [place] 650 mg Q6H PRN Administration Headache/Fever or Pain (1-3) Acetaminophen 650 mg 06/08/20 04:48 06/09/20 20:59 Acetaminophen 325 Mg Tab PER TUBE 650 mg Q6H PRN Administration Headache/Fever or Pain (1-3) Amiodarone HCl 400 mg 06/11/20 09:00 06/12/20 08:23 Amiodarone 200 Mg Tab PO 400 mg TID LUCIA Administration Furosemide 20 mg 06/12/20 09:00 06/12/20 10:08 Furosemide 20 Mg/2 Ml Vial SLOW IVP 20 mg DAILY LUCIA Administration Piperacillin Sod/Tazobactam 100 mls @ 200 mls/hr 06/09/20 12:00 06/12/20 11:25 Sod 3.375 gm/ Sodium Chloride IVPB 100 mls 0400,1200,2000 LUCIA Administration Insulin Human Lispro 0 units 06/09/20 06:09 06/11/20 16:47 Humalog 300 Units/3 Ml Vial SC 3 unit .MILD SLIDING SCALE PRN Administration Mild Correctional Scale Lisinopril 5 mg 06/08/20 21:00 06/12/20 08:23 Lisinopril 5 Mg Tab PO 5 mg BID LUCIA Administration Ondansetron HCl 4 mg 06/01/20 15:45 06/07/20 11:23 Zofran IVP 4 mg Q6H PRN Administration Nausea/Vomiting Pantoprazole Sodium 40 mg 06/09/20 09:00 06/12/20 08:23 Pantoprazole 40 Mg Granules Packet PER TUBE 40 mg DAILY LUCIA Administration Sodium Chloride 10 ml 06/01/20 15:45 06/10/20 21:17 Flush - Normal Saline IVF 10 ml PRN PRN Administration Saline Flush Tramadol HCl 50 mg 06/01/20 15:49 06/12/20 08:23 Tramadol Hcl 50 Mg Tab PO 50 mg Q6H PRN Administration Mild Pain (1-3) - Exam General Appearance: NAD, awake alert Eye: PERRL ENT: normocephalic atraumatic Neck: supple Heart: RRR, normal peripheral pulses Respiratory: CTAB, normal chest expansion Gastrointestinal: soft, normal bowel sounds Extremities: 1+ LE edema Neurological: no focal deficits Hosp A/P - Plan ICH: Large left anterior intraparenchymal bleed with communication to the ventricle and possible mild obstructive hydrocephalus. Admitted to neurosurgery. No intervention indicated or planned. -PEG tube placed on 06/07/2020. NS is planning a follow up MRI of the brain 6 weeks from the initial event to reassess for the possibility of underlying neoplasm once the blood has resolved. Hypertension: Transaminitis: Trending downward. Ultimately, resolved back to normal. Needs periodic checkup as patient will be on amiodarone. Atrial fibrillation with rapid ventricular response: -Will hold diltiazem drip for now it appears she is back in sinus rhythm. I will reduce the amiodarone dose as well as Coreg. -We will get a TSH for baseline as well. Fever: And UTI UTI: Leukocytosis Urine culture growing presumptive E. coli. Due to the jump in white count and worsening infiltrate we will escalate antibiotic to Zosyn. - Pulmonary edema: Chest x-ray on 06/07/2020 showed evidence of pulmonary edema. echo ef of 55% Stat blood gas showed pH of 7.45 with a PCO2 of 30. She is also in resp. distress. Her blood pressure is on the low side. She is badly verbalizing much. She appears quite ill. But not toxic looking. Daughter at bedside. I discussed with her. Also discussed with RN. Patient would be better for now to move her to IMCU if we need to put her on BiPAP. So we will proactively move her to IMCU. Her white count jumped up. Repeat chest x-ray worsening infiltrate. COVID negative. Escalating the antibiotic to Zosyn. Echo report reviewed. Nursing went ahead and gave her the amiodarone 400 and Coreg by the time I get there. Will hold the diltiazem drip for now and move her to IMCU. If her heart rate jumped up and blood pressure high then we will restart her back on the drip. dispo - SNF as she may not be a candidate for home with home health. Patient is stable to transfer to the stroke floor. no improvement neurologically. -Plan for [facility] to [facility]. Amiodarone increased to 400 mg 3 times a day and Coreg was on hold. Sats are getting better. Afebrile for the last 48 hours. Pending rehab. Hyponatremia -Likely due to poor p.o. intake -We will get gentle hydration. -As she is getting clinically better DC Zosyn and put her on Augmentin and the last date is 28. -Switch Lasix to p.o. low-dose Mild hyperkalemia -Hold lisinopril -Recheck the potassium if it goes above 5.5 need to intervene with Kayexalate. -Hold to the rehab if bed available; -if electrolytes normalized then will transfer her to the rehab.
[2020-06-12] MEDS ORDERED: Sodium Chloride 0.9% 1,000 ML IV SCH (12:00)
[2020-06-12] MEDS: HumaLOG 300 UNITS/3 ML VIAL SC PRN (17:21)
[2020-06-12] MEDS: Amoxicillin/Potassium Clav 875 MG TAB PO SCH (21:50)
[2020-06-13 05:06] LABS: #Eosinphils 0.5 thou/uL (0.0-0.7); #Lymphocytes 1.1 thou/uL (1.20-3.40); #Monocytes 1.1 thou/uL (0.11-0.59); #Neutrophils 7.5 thou/uL (1.40-6.50); %Basophils 0.2 % (0.0-1.0); %Eosinophils 4.5 % (0.0-10.0); %Lymphocytes 10.9 % (21.0-51.0); %Monocytes 10.5 % (0.0-10.0); Anion Gap 16 mmol/L (10-20); BUN (Urea Nitrogen) 19 mg/dL (9.8-20.1); Calc. Creatinine Clearance 130 mL/min (70-130); Calcium 8.2 mg/dL (7.8-10.44); Carbon Dioxide 20 mmol/L (23-31); Chloride 97 mmol/L (98-107); Estimated GFR-MDRD Greater than 90; Glucose 91 mg/dL (83-110); Hemoglobin 13.9 g/dL (12.0-16.0); Mean Corpuscular HGB CONC 31.8 g/dL (32.0-36.0); Mean Corpuscular Hemoglobin 29.6 pg (27.0-31.0); Mean Platelet Volume 8.1 fL (7.4-10.4); Platelet Count 347 thou/uL (130-400); Potassium 4.7 mmol/L (3.5-5.1); RBC Distribution Width 12.5 % (11.5-14.5); Red Blood Cell (RBC) Count 4.69 mill/uL (4.20-5.40); Sodium 128 mmol/L (136-145); White Blood Cell (WBC) Count 10.1 thou/uL (4.8-10.8)
[2020-06-13] MEDS: Amiodarone 200 MG TAB PO SCH ×3 (08:25→21:34)
[2020-06-13] MEDS: traMADol HCl 50 MG TAB PO PRN ×2 (08:26→21:34)
[2020-06-13] MEDS: Furosemide 20 MG TAB PO SCH (08:26)
[2020-06-13] MEDS: Amoxicillin/Potassium Clav 875 MG TAB PO SCH ×2 (08:26→21:34)
[2020-06-13] MEDS: Pantoprazole 40 MG GRANULES PACKET PER TUBE SCH (08:26)
--- NOTE | 2020-06-13 12:12 | PDOC.HOSPP ---
- Subjective Encounter Date: 06/13/20 Encounter Time: 09:10 Subjective: Patient remained the same no change in her neurological status. She is in no respiratory distress. I tried to reach for the transfer of primary I am not able to reach him around 12 noon at [phone]. I called the granddaughter Marie at [phone] and I updated her the current status. Patient is waiting for the custodial facility placement. Discussed with RN as well as the rifle case repairer. - Objective Vital Signs & Weight: Vital Signs (12 hours) Temp Pulse Resp BP Pulse Ox 06/13/20 11:24 98.3 F 79 20 148/69 H 96 06/13/20 07:38 98.3 F 86 20 110/57 L 98 06/13/20 07:01 99 06/13/20 04:33 97.6 F 105 H 122/63 93 L 06/13/20 00:25 98.9 F 75 18 99/47 L 96 Weight Admit Weight 191 lb 5.776 oz Weight 191 lb 5.776 oz Most Recent Monitor Data Heart Rate from ECG 70 NIBP 141/70 NIBP BP-Mean 93 Respiration from ECG 26 SpO2 92 I&O: 06/12/20 06/13/20 06/14/20 06:59 06:59 06:59 Intake Total 2087 1991 Output Total 1399 1999 Balance 688 -8 Result Diagrams: 06/13/20 04:33 06/13/20 04:33 Additional Labs: Accuchecks 06/13/20 06/13/20 06/12/20 10:47 05:53 20:43 POC Glucose 119 H 111 H 77 06/12/20 16:46 POC Glucose 218 H Hospitalist ROS - Medication Medications: Active Medications Generic Name Dose Route Start Last Admin Trade Name Freq PRN Reason Stop Dose Admin Acetaminophen 650 mg 06/01/20 15:41 06/04/20 23:16 Tylenol FL 650 mg Q6H PRN Administration Headache/Fever or Pain (1-3) Acetaminophen 650 mg 06/08/20 04:48 06/09/20 20:59 Acetaminophen 325 Mg Tab PER TUBE 650 mg Q6H PRN Administration Headache/Fever or Pain (1-3) Amiodarone HCl 400 mg 06/11/20 09:00 06/13/20 08:25 Amiodarone 200 Mg Tab PO 400 mg TID LUCIA Administration Amoxicillin/Clavulanate Potassium 875 mg 06/12/20 21:00 06/13/20 08:26 Amoxicillin/Potassium Clav 875 Mg Tab PO 06/17/20 21:01 875 mg Q12HR LUCIA Administration Furosemide 20 mg 06/13/20 09:00 06/13/20 08:26 Furosemide 20 Mg Tab PO 20 mg DAILY LUCIA Administration Insulin Human Lispro 0 units 06/09/20 06:09 06/12/20 17:21 Humalog 300 Units/3 Ml Vial SC 3 unit .MILD SLIDING SCALE PRN Administration Mild Correctional Scale Ondansetron HCl 4 mg 06/01/20 15:45 06/07/20 11:23 Zofran IVP 4 mg Q6H PRN Administration Nausea/Vomiting Pantoprazole Sodium 40 mg 06/09/20 09:00 06/13/20 08:26 Pantoprazole 40 Mg Granules Packet PER TUBE 40 mg DAILY LUCIA Administration Sodium Chloride 10 ml 06/01/20 15:45 06/10/20 21:17 Flush - Normal Saline IVF 10 ml PRN PRN Administration Saline Flush Tramadol HCl 50 mg 06/01/20 15:49 06/13/20 08:26 Tramadol Hcl 50 Mg Tab PO 50 mg Q6H PRN Administration Mild Pain (1-3) - Exam General Appearance: NAD, awake alert, ill appearing General - other findings: A phasic Eye: PERRL ENT: normocephalic atraumatic Neck: supple Heart: RRR Respiratory: CTAB, normal chest expansion Gastrointestinal: soft, normal bowel sounds Neurological: no new deficit, speech deficit Psychiatric: not oriented Hosp A/P - Plan ICH: Large left anterior intraparenchymal bleed with communication to the ventricle and possible mild obstructive hydrocephalus. Admitted to neurosurgery. No intervention indicated or planned. -PEG tube placed on 06/07/2020. NS is planning a follow up MRI of the brain 6 weeks from the initial event to reassess for the possibility of underlying neoplasm once the blood has resolved. Hypertension: Transaminitis: Trending downward. Ultimately, resolved back to normal. Needs periodic checkup as patient will be on amiodarone. Atrial fibrillation with rapid ventricular response: -Will hold diltiazem drip for now it appears she is back in sinus rhythm. I will reduce the amiodarone dose as well as Coreg. -We will get a TSH for baseline as well. Fever: And UTI UTI: Leukocytosis Urine culture growing presumptive E. coli. Due to the jump in white count and worsening infiltrate we will escalate antibiotic to Zosyn. - Pulmonary edema: Chest x-ray on 06/07/2020 showed evidence of pulmonary edema. echo ef of 55% Stat blood gas showed pH of 7.45 with a PCO2 of 30. She is also in resp. distress. Her blood pressure is on the low side. She is badly verbalizing much. She appears quite ill. But not toxic looking. Daughter at bedside. I discussed with her. Also discussed with RN. Patient would be better for now to move her to IMCU if we need to put her on BiPAP. So we will proactively move her to IMCU. Her white count jumped up. Repeat chest x-ray worsening infiltrate. COVID negative. Escalating the antibiotic to Zosyn. Echo report reviewed. Nursing went ahead and gave her the amiodarone 400 and Coreg by the time I get there. Will hold the diltiazem drip for now and move her to IMCU. If her heart rate jumped up and blood pressure high then we will restart her back on the drip. dispo - SNF as she may not be a candidate for home with home health. Patient is stable to transfer to the stroke floor. no improvement neurologically. -Plan for discharge to the custodial facility. Amiodarone increased to 400 mg 3 times a day and Coreg was on hold. Sats are getting better. Afebrile for the last 48 hours. Pending rehab. Hyponatremia -Likely due to poor p.o. intake -We will get gentle hydration. -As she is getting clinically better DC Zosyn and put her on Augmentin and the last date is 28. -Switch Lasix to p.o. low-dose Mild hyperkalemia -Hold lisinopril -Recheck the potassium if it goes above 5.5 need to intervene with Kayexalate. -Hold to the rehab if bed available; -if electrolytes normalized then will transfer her to the rehab. Her blood glucose looks better. However her sodium is around 128. Short course of IV fluid gentle hydration. Repeat BMP. I tried to reach for the transfer of primary I am not able to reach him around 12 noon at [phone]. I called the granddaughter Marie at [phone] and I updated her the current status. Patient is waiting for the custodial facility placement. Discussed with RN as well as the rifle case repairer.
[2020-06-13] MEDS ORDERED: Sodium Chloride 0.9% 1,000 ML IV SCH (12:15)
[2020-06-13] MEDS: HumaLOG 300 UNITS/3 ML VIAL SC PRN (17:09)
[2020-06-14 05:39] LABS: #Eosinphils 0.3 thou/uL (0.0-0.7); #Lymphocytes 0.8 thou/uL (1.20-3.40); #Monocytes 0.7 thou/uL (0.11-0.59); #Neutrophils 5.5 thou/uL (1.40-6.50); %Basophils 0.3 % (0.0-1.0); %Eosinophils 4.3 % (0.0-10.0); %Lymphocytes 10.8 % (21.0-51.0); %Neutrophils 74.5 % (42.0-75.0); Hemoglobin 14.1 g/dL (12.0-16.0); Mean Corpuscular HGB CONC 33.6 g/dL (32.0-36.0); Mean Corpuscular Hemoglobin 31.5 pg (27.0-31.0); Mean Corpuscular Volume 93.7 fL (78.0-98.0); Mean Platelet Volume 7.9 fL (7.4-10.4); Platelet Count 350 thou/uL (130-400); RBC Distribution Width 12.4 % (11.5-14.5); Red Blood Cell (RBC) Count 4.46 mill/uL (4.20-5.40); White Blood Cell (WBC) Count 7.4 thou/uL (4.8-10.8)
[2020-06-14 06:01] LABS: Anion Gap 13 mmol/L (10-20); BUN (Urea Nitrogen) 17 mg/dL (9.8-20.1); Calc. Creatinine Clearance 127 mL/min (70-130); Calcium 8.2 mg/dL (7.8-10.44); Carbon Dioxide 21 mmol/L (23-31); Chloride 98 mmol/L (98-107); Estimated GFR-MDRD Greater than 90; Glucose 92 mg/dL (83-110); Potassium 4.8 mmol/L (3.5-5.1); Sodium 127 mmol/L (136-145)
[2020-06-14] MEDS: Pantoprazole 40 MG GRANULES PACKET PER TUBE SCH (09:56)
[2020-06-14] MEDS: Amoxicillin/Potassium Clav 875 MG TAB PO SCH (09:56)
[2020-06-14] MEDS: Furosemide 20 MG TAB PO SCH (09:57)
[2020-06-14] MEDS: Amiodarone 200 MG TAB PO SCH ×2 (09:57→14:24)
[2020-06-14 14:56] VITALS: BP 127/70; TEMP 97.8
--- NOTE | 2020-06-14 18:05 | PRG ---
DATE OF SERVICE: 06/14/2020 SUBJECTIVE: Ms. Hennessy is nonverbal, but she looks more alert. OBJECTIVE: VITAL SIGNS: Blood pressure 127/70, pulse is 80. LUNGS: Clear. CARDIAC: Normal S1. Normal S2. ASSESSMENT: 1. Status post intracranial hemorrhage. 2. Paroxysmal atrial fibrillation with reduced amounts of fibrillation. PLAN: Continue amiodarone 400 mg three times a day while she is in the hospital. When she leaves, we will discharge her on 200 mg twice a day for 1 month, then 200 mg once a day. Job ID: [id number]
--- NOTE | 2020-06-15 10:42 | DIS ---
DATE OF ADMISSION: 06/01/2020 DATE OF DISCHARGE: 06/14/2020 DISCHARGE DIAGNOSES: 1. Paroxysmal atrial fibrillation converted to sinus rhythm. 2. Hypertension. 3. Diastolic heart failure. 4. Intraparenchymal bleed. 5. Hypertension. 6. Transaminitis. HOSPITAL COURSE: The patient had a long hospitalization due to intracranial bleed. She was admitted by Neurosurgery on June 01 for altered mentation, expressive aphasia and right-sided weakness. Imaging studies revealed left intraparenchymal hemorrhage with intraventricular extension and associated mentation changes along with right-sided hemiparesis with underlying history of hypertension. No neurosurgical intervention from their point of view. Care transferred to hospitalist and pretty much managed from the time of admission including ICU management and further care on the medical floor. A PEG tube placed on June 07. She had transaminitis elevation that was mild. The last transaminitis levels were AST 21 and ALT of 38. Because the patient is on amiodarone, she needs periodic LFT as well as TSH followup. She had E coli UTI and that was treated appropriately with antibiotic and she completed the course. She also had pulmonary edema and echo showed EF of 55%. She received a short course of diuresis. She had a very difficult time to work with Physical Therapy as she frequently became quite fatigued. She also had mild hyponatremia that is ongoing and probably she would benefit with periodic checkup and requiring appropriate intervention as needed. The patient had a long stay due to intraventricular hemorrhage and other acute medical comorbidities. DISCHARGE INSTRUCTIONS: 1. Activity with Physical Therapy supervision. Healthy heart diet. 2. Follow up with Dr. [place] in one month. 3. Regarding the amiodarone, she needs to follow up with Dr. Murphy in 1 to 2 weeks after the rehab. She needs TSH and LFT for a periodic followup. 4. PEG tube care per retirement facility. TIME SPENT: Discharge time took over 35 minutes. Job ID: [id number] [facility]
== END 2020-06-14 17:18 | DRG 64 ==
LOC: ERS 10:09 → EDBD 10:09 → CCU 11:15 → 2SE 06-03 21:04 → IMCU/EMU 06-09 11:17 → 2SE 06-10 15:49
PROVIDERS: ADMIT Surgery; ATTEND Surgery
PROC: 0DH63UZ Insertion of Feeding Device into Stomach, Percutaneous Approach (ICD-10-PCS; principal; 2020-06-07)
PROC: 0DB68ZX Excision of Stomach, Via Natural or Artificial Opening Endoscopic, Diagnostic (ICD-10-PCS; 2020-06-07)
PROC: 0DB78ZX Excision of Stomach, Pylorus, Via Natural or Artificial Opening Endoscopic, Diagnostic (ICD-10-PCS; 2020-06-07)
DX: I61.0 Nontraumatic intracerebral hemorrhage in hemisphere, subcortical (principal); G93.41 Metabolic encephalopathy; R47.01 Aphasia; G81.91 Hemiplegia, unspecified affecting right dominant side; G91.1 Obstructive hydrocephalus; N39.0 Urinary tract infection, site not specified; E87.1 Hypo-osmolality and hyponatremia; I50.30 Unspecified diastolic (congestive) heart failure; I11.0 Hypertensive heart disease with heart failure; Z20.828 Contact with and (suspected) exposure to other viral communicable diseases; R40.2352 Coma scale, best motor response, localizes pain, at arrival to emergency department; R40.2142 Coma scale, eyes open, spontaneous, at arrival to emergency department; R40.2222 Coma scale, best verbal response, incomprehensible words, at arrival to emergency department; R74.0 Nonspecific elevation of levels of transaminase and lactic acid dehydrogenase [LDH]; R29.810 Facial weakness; I61.5 Nontraumatic intracerebral hemorrhage, intraventricular; R13.12 Dysphagia, oropharyngeal phase; K29.80 Duodenitis without bleeding; I48.0 Paroxysmal atrial fibrillation; R00.1 Bradycardia, unspecified; B96.20 Unspecified Escherichia coli [E. coli] as the cause of diseases classified elsewhere; E87.5 Hyperkalemia; Z90.710 Acquired absence of both cervix and uterus; Z79.899 Other long term (current) drug therapy; Z79.82 Long term (current) use of aspirin; Z78.1 Physical restraint status
CPT/HCPCS: 36415; 36416; 36600; 51701; 70450; 70496; 70553; 71045; 74018; 80048; 80053; 80076; 81003; 81015; 82550; 82805; 83735; 83880; 84484; 85025; 85610; 85730; 87077; 87086; 87186; 87635; 88305; 88312; 93005; 93010; 93306; 94760; 96374; J0282; J0360; J0690; J0696; J1160; J1644; J1885; J1940; J2270; J2405; J2543; J2704; J3490; J7070; Q9967; S0028; U0003